=== PATIENT | female | born 1950 | race Caucasian/White ===

== ENCOUNTER 2018-06-20 10:15 | Outpatient (CLI) | payer MEDICARE, SELFPAY ==
[2018-06-20 10:42] LABS: Bilirubin Negative (Negative); Blood Negative (Negative); Clarity Clear; Glucose Negative (Negative); Ketones Trace mg/dL (Negative); Leukocyte Esterase Negative (Negative); Nitrite Negative (Negative); Specific Gravity 1.015 (1.005-1.025); Urobilinogen 0.2 EU/dL (Up TO 0.2); pH 5.5 (5-8)
== END 2018-06-20 10:35 ==
DX: R30.0 Dysuria (principal)
CPT/HCPCS: 81003

== ENCOUNTER 2018-10-31 01:30 | Outpatient (CLI) | payer MEDICARE, SELFPAY ==
[2018-10-31 10:48] LABS: ALT 28 U/L (12-78); AST 15 U/L (15-37); Albumin 4.1 g/dL (3.4-5.0); Alkaline Phosphatase 71 U/L (46-116); Anion Gap 5.5 mmol/L (3-11); BUN 23 mg/dL (7-18); Bilirubin, Total 0.7 mg/dL (0.2-1.0); CO2 32.5 mmol/L (21.0-32.0); CREATININE 0.95 mg/dL (0.55-1.02); Calcium 9.3 mg/dL (8.5-10.1); Chloride 102 mmol/L (98-107); Cholesterol 233 mg/dL (50-200); Estimated GFR 58.85 (mL/min/1.73m2); Glucose 105 mg/dL (70-100); HDL Cholesterol 91 mg/dL (40-60); LDL CHOLESTEROL 126 mg/dL (<100); Potassium 4.3 mmol/L (3.5-5.1); Sodium 140 mmol/L (136-145); TSH (W/Ref FT4) 3.49 uIU/mL (0.358-3.74); Triglyceride 78 mg/dL (30-150)
== END 2018-10-31 01:50 ==
DX: I10 Essential (primary) hypertension (principal); R63.8 Other symptoms and signs concerning food and fluid intake; K21.9 Gastro-esophageal reflux disease without esophagitis; G47.00 Insomnia, unspecified; Z13.220 Encounter for screening for lipoid disorders
CPT/HCPCS: 36415; 80053; 80061; 83721; 84443

== ENCOUNTER 2018-11-20 07:18 | Outpatient (CLI) | payer MEDICARE, SELFPAY ==
[2018-11-20 17:50] LABS: COMMENT (LAB VIEW ONLY) 113.56 mg/dL; Microalb ug/mg Crea 365.1 ug/mg Cr
== END 2018-11-20 07:38 ==
DX: I10 Essential (primary) hypertension (principal)
CPT/HCPCS: 82043; 82570

== ENCOUNTER 2019-06-01 02:32 | Outpatient (CLI) | payer MEDICARE, SELFPAY ==
[2019-06-01 10:12] LABS: ALT 27 U/L (14-59); AST 13 U/L (15-37); Alkaline Phosphatase 62 U/L (46-116); Anion Gap 9.7 mmol/L (3-11); BUN 27 mg/dL (7-18); Bilirubin, Total 0.6 mg/dL (0.2-1.0); CO2 30.3 mmol/L (21.0-32.0); CREATININE 1.07 mg/dL (0.55-1.02); Calcium 9.2 mg/dL (8.5-10.1); Calculated LDL 148 mg/dL; Chloride 102 mmol/L (98-107); Cholesterol 240 mg/dL (50-200); Estimated GFR 51.31 (mL/min/1.73m2); Glucose 108 mg/dL (70-100); HDL Cholesterol 74 mg/dL (40-60); Potassium 4.4 mmol/L (3.5-5.1); Sodium 142 mmol/L (136-145); Total Protein 8.2 g/dL (6.4-8.2); Triglyceride 90 mg/dL (30-150)
== END 2019-06-01 02:52 ==
DX: D17.9 Benign lipomatous neoplasm, unspecified (principal); G43.909 Migraine, unspecified, not intractable, without status migrainosus; I10 Essential (primary) hypertension; K21.9 Gastro-esophageal reflux disease without esophagitis
CPT/HCPCS: 36415; 80053; 80061

== ENCOUNTER 2019-06-02 12:25 | Outpatient (CLI) | payer MEDICARE, SELFPAY ==
--- NOTE | 2019-06-02 14:00 | DI.RAD_ITS ---
EXAM: XR FOOT LT COMPLETE CLINICAL HISTORY: foot pain M79.672. TECHNIQUE: 2D digital imaging was performed. COMPARISON: XR FOOT RT COMPLETE from 06/02/2019 FINDINGS: BONES: No acute fracture is present. No bony destructive lesion is seen. There is a small spur at th e plantar surface of the calcaneus. JOINTS: Mild degenerative changes are seen at the 1st metatarsophalangeal joint, the tarsometatarsal joints, and the talonavicular joint. SOFT TISSUE: Normal. IMPRESSION: Mild degenerative changes of the left foot.
--- NOTE | 2019-06-02 14:00 | DI.RAD_ITS ---
EXAM: XR FOOT RT COMPLETE CLINICAL HISTORY: foot pain M79.671. TECHNIQUE: 2D digital imaging was performed. COMPARISON: No exams were available for comparison FINDINGS: BONES: No acute fracture is present. There is a small spur at the plantar surface of the calcaneus. No bony destructive lesion is seen. JOINTS: Mild degenerative changes are present at the 1st metatarsophalangeal joint. SOFT TISSUE: Normal. IMPRESSION: Mild degenerative changes of the right foot.
== END 2019-06-02 12:45 ==
DX: M79.671 Pain in right foot (principal); M77.31 Calcaneal spur, right foot; M19.071 Primary osteoarthritis, right ankle and foot; M79.672 Pain in left foot; M77.32 Calcaneal spur, left foot; M19.072 Primary osteoarthritis, left ankle and foot
CPT/HCPCS: 73630

== ENCOUNTER 2019-08-11 20:49 | Outpatient (REF) | payer MEDICARE, SELFPAY | END 2019-08-11 21:09 | LOC: LBN 20:49 | PROVIDERS: Visit Provider Nurse Practitioner | DX: R30.0 Dysuria (principal) | CPT/HCPCS: 87077; 87086; 87186 ==

== ENCOUNTER 2019-09-14 01:38 | Outpatient (CLI) | payer MEDICARE, SELFPAY ==
--- NOTE | 2019-09-14 12:28 | DI.MAMMO_ITS ---
EXAM: MG MAMMO SCREENING CLINICAL HISTORY: screening Z12.39. TECHNIQUE: Bilateral full field digital CC and MLO mammographic images were obtained with 3D tomosyn thesis and utilizing computer aided detection (CAD). COMPARISON: Available for comparison. FINDINGS: Masses/Architectural Distortion: The hyperlucent mass seen in the left breast is unchanged and is con sistent with a lipoma. No suspicious masses are present. Microcalcifications: No suspicious pleomorphic-type are seen. Skin Thickening/Nipple Retraction: None. IMPRESSION: 1. No significant interval change with no specific features of malignancy noted. 2. Unless there is more urgent need, screening mammography is recommended, as per [employer] guidelines. BI-RADS Cat 2 - Benign Findings Breast Density - Category C - Heterogeneously dense The mammogram demonstrates the patient's breast tissue is dense. Dense breast tissue is very common a nd is not abnormal but dense breast tissue can make it harder to find cancer on a mammogram. Also, de nse breast tissue may increase their breast cancer risk. This information about the [facility] was provided to the patient to raise their awareness. Use this report when you speak wi th the patient about their risks for breast cancer, which includes their family history. At that time , you may recommend for more screening tests (Ultrasound or MRI) as they might be useful based on the ir risk. A negative radiographic report should not delay biopsy if a dominant or clinically suspicious mass is present. Up to ten percent of cancers are not identified on mammography. A negative report may reinforce clinical impression. Adenosis and dense breasts may obscure an underlying neoplasm. False positive reports average 6 to 10%. Patient will receive a letter notifying them of these results.
== END 2019-09-14 01:58 ==
PROVIDERS: Visit Provider Nurse Practitioner
DX: Z12.31 Encounter for screening mammogram for malignant neoplasm of breast (principal); D24.2 Benign neoplasm of left breast
CPT/HCPCS: 77063; 77067

== ENCOUNTER 2019-10-07 23:49 | Emergency (ER) | payer MEDICARE, SELFPAY ==
[2019-10-07 23:53] VITALS: BP 148/98; PULSE 82; RESP 16; TEMP 36.5
--- NOTE | 2019-10-08 00:09 | ED.GENADUL_ITS ---
Discharge Plan Disposition Patient Disposition: HOME Condition: Good Discharge Details Chief Complaint: Urinary Clinical Impression: UTI (urinary tract infection) Primary Care Provider: Krystal Key ED Provider: Jose Stein Meds and New Rx's Prescriptions: New phenazopyridine [Pyridium] 100 mg tablet 100 mg PO TID Qty: 6 RF: 0 nitrofurantoin monohyd/m-cryst [Macrobid] 100 mg capsule 100 mg PO Q12H 5 Days Qty: 10 RF: 0 No Action hydrochlorothiazide 25 mg tablet 25 mg PO DAILY Qty: 90 RF: 4 losartan 50 mg tablet 50 mg PO DAILY Qty: 90 RF: 3 omeprazole 20 mg capsule,delayed release(DR/EC) 20 mg PO DAILY Qty: 90 RF: 3 cyanocobalamin (vitamin B-12) [Vitamin B-12] 2,500 MCG tablet, sublingual 2,500 mcg Sublingual DAILY RF: 0 cholecalciferol (vitamin D3) [Vitamin D3] 2,000 UNIT capsule 2,000 unit PO DAILY RF: 0 Discharge Instructions Instructions: Urinary Tract Infection in Women (ED) Additional Instructions: The Pyridium will help with the symptoms but will turn your urine orange. Antibiotic for 5 days. Follow-up with primary care next week if not better. Return to ED for fever, back pain, vomiting, other concerns. Referrals: Krystal Key, [facility] [Primary Care Provider] - Medical Decision Making Patient's urine positive for blood and leukocytes with large number of WBCs seen on micro. Patient given Pyridium for symptoms. Started on Macrobid for cystitis. No evidence of systemic illness at this point. Follow-up with [facility] care next week if not better. Return to ED for fever, vomiting, back pain, other concerns or problems. Lab Data Lab results reviewed: Yes I reviewed the patient's lab results. HPI General Mode of arrival: ambulatory . Date/Time Provider Initiated Documentation: 10/08/19 00:07 . Limitations to Documentation: no limitations . Information obtained by: patient . HPI Narrative: Patient presents to ED with complaint of urinary symptoms that started this afternoon. She has a lot of dysuria, urgency, pressure. She felt a little chilled but no documented fever. No flank pain. No vomiting. Little bit of low back pain and pelvic pressure. Has had UTIs in the past. Related Data Home Medications Medication Instructions Recorded Confirmed cyanocobalamin (vitamin B-12) 2,500 mcg SUBLINGUAL DAILY 01/16/13 10/08/19 [B-12] cholecalciferol (vitamin D3) 2,000 unit PO DAILY tab 01/19/13 10/08/19 [Vitamin D-3] hydrochlorothiazide 25 mg tablet 25 mg PO DAILY #90 tab-cap 11/10/18 10/08/19 losartan 50 mg tablet 50 mg PO DAILY #90 tab 11/10/18 10/08/19 omeprazole 20 mg capsule,delayed 20 mg PO DAILY #90 cap 06/02/19 10/08/19 release nitrofurantoin monohyd/m-cryst 100 mg PO Q12H 5 Days #10 cap 10/08/19 [Macrobid] phenazopyridine [Pyridium] 100 mg PO TID #6 tab 10/08/19 Previous Rx's Medication Instructions Recorded hydrochlorothiazide 25 mg tablet 25 mg PO DAILY #90 tab-cap 11/10/18 losartan 50 mg tablet 50 mg PO DAILY #90 tab 11/10/18 omeprazole 20 mg capsule,delayed 20 mg PO DAILY #90 cap 06/02/19 release nitrofurantoin monohyd/m-cryst 100 mg PO Q12H 5 Days #10 cap 10/08/19 [Macrobid] phenazopyridine [Pyridium] 100 mg PO TID #6 tab 10/08/19 Allergies Allergy/AdvReac Type Severity Reaction Status Date / Time lisinopril AdvReac Intermediate COUGH Verified 10/08/19 00:26 General Stated Complaint: Urinary OK: 4 Review of Systems Constitutional Constitutional: Denies fever(s) Gastrointestinal Gastrointestinal: Denies abdominal pain, Denies nausea and Denies vomiting Genitourinary Genitourinary: Reports urinary frequency, Reports dysuria, Denies flank pain and Reports urinary urgency COUNT INCLUDES THE [facility] Medical History History of gastroesophageal reflux (GERD) (Chronic) Hypertension (Chronic) Intermittent palpitations (Chronic) 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) Surgical History No significant past surgical history (Acute) Social History Smoking/Tobacco Use Status: Never Alcohol Intake: current Alcohol Intake frequency: 0-2 drinks per day Alcohol type: wine and hard liquor Drug use: Never Substance use type: does not use Household members: spouse Pets and animals: Yes Pets and animals: cat(s) Do you think of yourself as: straight/heterosexual Current gender identity: female What is your relationship status?: How often do you talk on the phone with friends or family?: three or more times per week How often do you get together with friends or relatives?: three or more times per week How often do you attend nondenominational or mormon services?: decline to answer Do you belong to any clubs or organized social groups?: decline to answer Panel score (0-1 are the most socially isolated patients): 2 What type of physical activity do you participate in: other Duration: 30-45 minutes/day Frequency: 3-4 times per week Karley/Buddhist: Confucianism Special karley needs: No Do you feel safe at home: Yes Do you feel safe in your relationship?: Yes Exam Narrative Exam Narrative: Vitals: Afebrile. Elevated blood pressure otherwise normal vital signs. Const: WDWN female in NAD. HEENT: NC/AT. Normal facial exam. Eyes: Normal conjunctiva and sclera. Neck: Supple. Trachea midline. Lungs: Normal respiratory effort. GI: Soft. NT/ND. No guarding or rebound. Back: No CVAT Neuro: A+O x 3. Normal speech, mentation, gait. Cranial nerves II - XII grossly intact. No gross motor or sensory deficit. Course Vital Signs Vital signs: Vital Signs Temperature 97.7 F 10/07/19 23:53 Pulse 82 10/07/19 23:53 Respiratory Rate 16 10/07/19 23:53 Blood Pressure 148/98 H 10/07/19 23:53 Temperature 97.7 F 10/07/19 23:53 Temperature Source Temporal Artery Scan 10/07/19 23:53 Pulse 82 10/07/19 23:53 Respiratory Rate 16 10/07/19 23:53 Respiratory Effort 10/07/19 23:59 Blood Pressure 148/98 H 10/07/19 23:53 Pain Level 8 10/08/19 00:00
[2019-10-08] MEDS: MacroBID 100 MG CAP PO (00:21)
[2019-10-08 00:22] LABS: Bilirubin Negative (Negative); Blood Large (Negative); Clarity Sl Cloudy (Clear); Glucose Negative (Negative); Ketones Negative (Negative); Leukocyte Esterase Large (Negative); Nitrite Negative (Negative); Urobilinogen 0.2 EU/dL (Up TO 0.2)
[2019-10-08] MEDS: Phenazopyridine 100 MG TAB PO (00:22)
[2019-10-08 00:31] LABS: Bacteria Few HPF (Negative); C & S Indicated? Yes; Epithelial Cells Few HPF (Negative); WBC >50 HPF (0-5)
[2019-10-08 01:10] VITALS: BP 148/98; PULSE 82; RESP 16
== END 2019-10-08 01:13 | disposition home or self-care (01) ==
PROVIDERS: Emergency Provider Emergency Medicine
DX: N39.0 Urinary tract infection, site not specified (principal); B96.20 Unspecified Escherichia coli [E. coli] as the cause of diseases classified elsewhere; Z87.440 Personal history of urinary (tract) infections; I10 Essential (primary) hypertension
CPT/HCPCS: 87077; 99283; 81003; 81015; 87086; 87186

== ENCOUNTER 2020-03-22 03:47 | Outpatient (CLI) | payer MEDICARE, SELFPAY ==
[2020-03-22 14:54] LABS: ALT 22 U/L (14-59); AST 12 U/L (15-37); Alkaline Phosphatase 51 U/L (46-116); Anion Gap 7.3 mmol/L (3-11); BUN 21 mg/dL (7-18); Bilirubin, Total 0.6 mg/dL (0.2-1.0); CO2 28.7 mmol/L (21.0-32.0); CREATININE 1.02 mg/dL (0.55-1.02); Calcium 9.6 mg/dL (8.5-10.1); Calculated LDL 138 mg/dL (<100); Chloride 102 mmol/L (98-107); Cholesterol 231 mg/dL (<200); Estimated GFR 54.05 (mL/min/1.73m2); Glucose 100 mg/dL (74-106); HDL Cholesterol 70 mg/dL (40-60); Potassium 3.8 mmol/L (3.5-5.1); Sodium 138 mmol/L (136-145); Total Protein 7.9 g/dL (6.4-8.2); Triglyceride 118 mg/dL (<150)
[2020-03-23 10:13] LABS: Varicella IgG Antibody Positive (See Note)
== END 2020-03-22 04:07 ==
DX: Z01.84 Encounter for antibody response examination
CPT/HCPCS: 36415; 80053; 80061; 86787

== ENCOUNTER 2020-08-22 21:15 | Outpatient (REF) | payer MEDICARE, SELFPAY ==
[2020-08-22 21:15] LABS: Bilirubin Negative (Negative); Blood Negative (Negative); Clarity Clear (Clear); Glucose Negative (Negative); Ketones Negative (Negative); Leukocyte Esterase Small (Negative); Nitrite Negative (Negative); Specific Gravity 1.015 (1.005-1.025); Urobilinogen 0.2 EU/dL (Up TO 0.2); pH 6.5 (5-8)
[2020-08-22 21:25] LABS: Bacteria Moderate HPF (Negative); C & S Indicated? Yes; Casts Negative LPF (Negative); Crystals Negative HPF (Negative); Epithelial Cells Few HPF (Negative); Mucus Negative (Negative); RBC 0-2 HPF (0-2)
== END 2020-08-22 21:35 ==
LOC: LBN 21:15
DX: R30.0 Dysuria (principal)
CPT/HCPCS: 87077; 81003; 81015; 87086; 87186

== ENCOUNTER 2020-09-09 14:24 | Outpatient (REF) | payer MEDICARE, SELFPAY | END 2020-09-09 14:44 | LOC: LBN 14:24 | PROVIDERS: Visit Provider Nurse Practitioner Family | DX: N39.0 Urinary tract infection, site not specified (principal) | CPT/HCPCS: 87086 ==

== ENCOUNTER 2020-09-29 20:35 | Outpatient (REF) | payer MEDICARE, SELFPAY ==
[2020-09-29 21:04] LABS: Bilirubin Negative (Negative); Blood Negative (Negative); Clarity Clear (Clear); Glucose Negative (Negative); Ketones Negative (Negative); Leukocyte Esterase Small (Negative); Nitrite Negative (Negative); Specific Gravity 1.015 (1.005-1.025); Urobilinogen 0.2 EU/dL (Up TO 0.2); pH 6.5 (5-8)
[2020-09-29 21:13] LABS: Bacteria Moderate HPF (Negative); C & S Indicated? Yes; Casts Negative LPF (Negative); Crystals Negative HPF (Negative); Epithelial Cells Few HPF (Negative); Mucus Negative (Negative); RBC 0-2 HPF (0-2)
== END 2020-09-29 20:55 ==
LOC: LBN 20:35
DX: R30.0 Dysuria (principal)
CPT/HCPCS: 81003; 81015; 87086

== ENCOUNTER 2021-06-08 18:40 | Outpatient (REF) | payer MEDICARE, SELFPAY | END 2021-06-08 18:41 | disposition home or self-care (01) | LOC: NCHCN 18:40 | PROVIDERS: Visit Provider Family Medicine | DX: N39.0 Urinary tract infection, site not specified (principal) | CPT/HCPCS: 87077; 87086; 87186 ==

== ENCOUNTER → 2021-06-20 08:54 | Outpatient (BNVA) | payer MEDICARE, SELFPAY | PROVIDERS: Visit Provider Surgery | DX: Z12.11 Encounter for screening for malignant neoplasm of colon (principal); Z86.010 Personal history of colon polyps ==

== ENCOUNTER 2021-06-26 02:24 | Outpatient (CLI) | payer MEDICARE, SELFPAY ==
[2021-06-26 11:12] LABS: Source Nasal/Nares
[2021-06-26 14:48] LABS: COVID-19 PCR Negative (Negative)
== END 2021-06-26 02:25 | disposition home or self-care (01) ==
LOC: LBO 02:24
PROVIDERS: Visit Provider Surgery
DX: Z20.822 Contact with and (suspected) exposure to COVID-19 (principal); Z01.818 Encounter for other preprocedural examination
CPT/HCPCS: 87635

== ENCOUNTER 2021-06-28 11:02 | Day surgery (SDC) | payer MEDICARE, SELFPAY ==
--- NOTE | 2021-06-28 06:28 | ANES.PREOP_ITS ---
General Info Date of Service Date Performed: 06/28/21 Height: 5 ft 3 in Weight: 68.266 kg Body Mass Index (BMI): 26.6 Surgical Procedure: Operation Date: 06/28/21 11:20 Proposed Procedures Side Surgeon p Colonoscopy Jonna Cooley MD Meds Allergies and Home Medications Allergies Allergy/AdvReac Type Severity Reaction Status Date / Time lisinopril AdvReac Intermediate COUGH Verified 06/28/21 11:17 Home Medication Medication Instructions Recorded cyanocobalamin (vitamin B-12) 2,500 mcg SUBLINGUAL DAILY 01/16/13 [B-12] cholecalciferol (vitamin D3) 2,000 unit PO DAILY tab 01/19/13 [Vitamin D-3] hydrochlorothiazide 25 mg tablet 25 mg PO DAILY #90 tab-cap 09/29/20 losartan 50 mg tablet 50 mg PO DAILY #90 tab 09/29/20 omeprazole 20 mg capsule,delayed 20 mg PO DAILY #90 cap 09/29/20 release bisacodyl 5 mg tablet,delayed 5 mg PO ONCE #4 tab 06/20/21 release polyethylene glycol 3350 17 17 g PO ONCE #238 g 06/20/21 gram/dose oral powder Current Visit Medications: Current Medications Generic Name Dose Route Start Last Admin Trade Name Freq PRN Reason Stop Dose Admin Ringer's Solution 1,000 mls @ 80 mls/hr 06/28/21 06:00 IV 07/27/21 23:59 INFUSION GIANA IV Miscellaneous Supplies 1 each 06/28/21 06:00 Iv Access IV 07/27/21 23:59 DIRECTED GIANA Sodium Chloride 0 ml 06/28/21 06:00 Normal Saline Flush 10 Ml Syr IV 07/27/21 23:59 PRN PRN Sodium Chloride 0 ml 06/28/21 06:00 Normal Saline 10 Ml Vial IJ 07/27/21 23:59 DIRECTED PRN Sterile Water 0 ml 06/28/21 06:00 Water,Injection,Sterile 10 Ml Vial IJ 07/27/21 23:59 DIRECTED PRN PFSH Active Problems Active Problems: Problem Status Onset Code Foot pain, left M79.672 Foot pain, right M79.671 UTI (urinary tract infection) N39.0 Anxiety as acute reaction to exceptional stress F41.1, F43.0 Weight gain R63.5 Colon cancer screening Z12.11 Annual physical exam Z00.00 Dysuria R30.0 Intermittent palpitations R00.2 History of gastroesophageal reflux (GERD) Z87.19 Tubulovillous adenoma polyp of colon D12.6 Hypertension I10 Lipoma 01/29/13 D17.9 Migraine G43.909 Osteopenia M85.80 Peptic reflux disease K21.9 Pityriasis versicolor 01/29/13 B36.0 Medical History Medical History Anxiety as acute reaction to exceptional stress Foot pain, left Foot pain, right History of gastroesophageal reflux (GERD) Hypertension Intermittent palpitations Lipoma (01/29/13) LEFT BREAST-[place] U[place] [facility] [place] Migraine trigeminal neuralgia Osteopenia Pityriasis versicolor (01/29/13) RECURRENT Tubulovillous adenoma polyp of colon UTI (urinary tract infection) Surgical History Surgical History (Updated 06/28/21 @ 11:16 by Esthela Chairez) History of colonoscopy Tobacco Smoking/Tobacco Use Status: Never Alcohol Alcohol Intake: current Alcohol intake frequency: 0-2 drinks per day Alcohol type: wine and hard liquor Substance Use Substance use: Never Substance use type: does not use Vital Signs and Lab Results Vital Signs Most Recent Vital Signs in EMR: Temp Pulse Resp BP Pulse Ox 36.6 C 58 L 18 140/89 100 06/28/21 11:05 06/28/21 11:05 06/28/21 11:05 06/28/21 11:05 06/28/21 11:05 Lab Results Blood Type / Crossmatch: No Data to Display Complete Blood Count: No Data to Display Complete Metabolic Panel: No Data to Display Liver Function Panel: No Data to Display Coagulation Panel: No Data to Display Cardiac Panel: No Data to Display Arterial Blood Gas: No Data to Display Venous Blood Gas: No Data to Display Pancreas Panel: No Data to Display Thyroid Panel: No Data to Display Infectious Disease: Coronavirus (COVID-19)(PCR) Negative (Negative) 06/26/21 09:03 06/26/21 Coronavirus 2019 Source Nasal/Nares 06/26/21 09:03 06/26/21 Blood Cultures: No Data to Display Toxicology Panel: No Data to Display Imaging and Studies Imaging and Studies Stress Test Summary: 2012: negative for ischemia. Anesthesia Assessment and Plan Anesthesia History Personal History: No History of Anesthesia Complications Family History: No Family History of Anesthesia Complications Exercise Tolerance Exercise Tolerance: Metabolic Equivalents>4 Cardiac & Pulmonary Exam Cardiac Exam: Normal S1/S2 Heart Sounds Pulmonary Exam: Clear Bilateral Breath Sounds Airway Exam Known Difficult Airway: No Mallampati Class: 2 Mouth Opening: Normal (> 3cm) Thyromental Distance: Greater than 3 cm Neck Range of Motion: Full ROM Neck Circumference: Normal Teeth Condition: Normal Dentition ASA Classification ASA Score: ASA 2 Emergency Case?: No NPO Status NPO Status: NPO Clears >2 hours, Solids >8 hours Anesthesia Plan Resuscitation Status: Full Code Anesthesia Technique: General Anesthesia Airway Planned: Natural Airway Monitors Used: Standard Monitors Preoperative Comments:: 70 yo female with history of adenomatous polyps for a colonoscopy. Sig PMHx: HTN (losartan/HCTZ), GERD (omeprazole), anxiety, never smoker, occ EtOH.
--- NOTE | 2021-06-28 06:50 | W.COLOREPORT ---
Colonoscopy Report Date of procedure: 06/28/21 Pre-op diagnosis general: Hx of colon polyps Post-op diagnosis procedure note: same (cecal polyp) Procedure: Colonoscopy with polypectomy Surgeon: Jonna Cooley Anesthesia Type: General:No Airway (Tevin Kramer CRNA) Estimated blood loss (mL): 3 Pathology: other (cecal polyp) Complications: None Disposition: same day Indications: Mrs Cheung is a pleasant 70-year-old female who is here today to discuss another screening colonoscopy. Her last colonoscopy was in 2017 and she was found to have a tubulovillous adenoma. She denies any changes in bowel habits, melena, hematochezia, unintentional weight loss, abdominal pain or family history of colon cancer. She does have some hemorrhoidal skin tags which sometimes can cause some pain. Her past medical history is significant for hypertension which is controlled. She also has some mild reflux which is well controlled on omeprazole. Risks, benefits and complications have been reviewed. Complications include but are not limited to bleeding, pain, perforation, missed small lesion/polyp, sore throat, aspiration and adverse reaction to the medications. Questions were entertained and answered to their satisfaction and they wished to proceed. No guarantees were given or implied. Proceed with colonoscopy under sedation Prep: Miralax/Dulcolax Procedure Start Time: 12:41 Procedure End Time: 13:01 Retraction Time: 11 minutes Findings: One sessile polyp in the cecum >10 mm Procedure Description: After informed consent was obtained the patient was taken to the procedure room and placed in a left decubitous position. Monitors were applied and a time out was done. The patients name, date of , procedure, allergies to medications and metal in their body was reviewed. The patient was then sedated. Once sedated and comfortable a rectal exam was done. External exam was normal. Internal exam revealed a decreased sphincter tone and no palpable masses. The scope was then introduced and retro-flexed. No internal hemorrhoids, polyps or masses were identified on retro-flexion. The scope was then advanced to the cecum without difficulty. The ileocecal vlave and appendiceal orifice were identified. The prep was good. The scope was then slowly retracted over 11 minutes back into the rectum. Polyps were removed with a hot snare in the cecum. There was no diverticulosis noted. The scope was removed and the patient was woken up and taken back to Same day surgery in stable condition. The patient tolerated the procedure well and there were no immediate complications. Follow up: The patient should follow up in 3 years unless they develop changes in bowel habits or other new gastrointestinal complaints.
--- NOTE | 2021-06-28 06:51 | W.PM.DSUDISC ---
Discharge Plan Disposition Patient Disposition: HOME Condition: Good Discharge Details Reason For Visit: Colonoscopy Attending Provider: Jonna Cooley Primary Care Provider: Krystal Key Home Meds and New Rx's Prescriptions: Continued losartan 50 mg tablet 50 mg PO DAILY Qty: 90 RF: 3 hydrochlorothiazide 25 mg tablet 25 mg PO DAILY Qty: 90 RF: 4 omeprazole 20 mg capsule,delayed release(DR/EC) 20 mg PO DAILY Qty: 90 RF: 3 cyanocobalamin (vitamin B-12) [Vitamin B-12] 2,500 MCG tablet, sublingual 2,500 mcg Sublingual DAILY RF: 0 cholecalciferol (vitamin D3) [Vitamin D3] 2,000 UNIT capsule 2,000 unit PO DAILY RF: 0 Discontinued bisacodyl [Dulcolax (bisacodyl)] 5 mg tablet,delayed release (DR/EC) 5 mg PO ONCE Qty: 4 RF: 0 polyethylene glycol 3350 17 gram/dose powder 17 g PO ONCE Qty: 238 RF: 0 Discharge Instructions Instructions: Colorectal Polyps (DC) Additional Instructions: Findings: one polyp > 1 cm Follow up: 3 years Please call if you develop: fevers >101.5 Nausea or Vomiting Abdominal pain that is not transient Rectal bleeding that is more then a tbsp A hard abdomen and inability to pass gas DAY SURGERY UNIT POST ENDOSCOPY INSTRUCTIONS Instructions for everyone who is given Anesthesia: For your safety, please do the following for the next 24 Hours: a. Do not drive or operate dangerous equipment b. Do not drink alcohol beverages or use any recreational drugs for the first 24 hours or while taking pain medications. The medications in your body may have a reaction that can be dangerous. c. Do not make any important decisions or sign any important papers 1. Generally there are no restrictions on your activity after a day or so has gone by, but you may feel a bit fatigued for a few days. 2. After you arrive home you may have a light meal and return to a normal diet as you can tolerate it without feeling sick to your stomach. 3. After surgery, you may feel pain or discomfort. This should be only transient, but if it persists please contact your doctor. 4. If there are any questions regarding the findings of your procedure, please feel free to contact your doctor. 6. If you are unable to contact your doctor with a problem, contact the hospital at [phone]. 7. Continue all your regular medications unless directed otherwise. I understand the above instructions and have no questions. Signature of Patient or Responsible Adult Escort Date/Time Name of Responsible Adult Escort Signature of Nurse Date/Time Activity:: Activity as Tolerated Diet:: As Tolerated Discharge Orders Discharge Orders: Discharge Order (Routine); Ordered 06/28/21 Ordered By: Jonna Cooley
[2021-06-28 11:05] VITALS: BP 140/89; PULSE 58; RESP 18; TEMP 36.6; O2SAT 100
[2021-06-28] MEDS: Lactated Ringers 1,000 ML 80 ML IV (11:38)
[2021-06-28 11:41] VITALS: BMI 26.6
--- NOTE | 2021-06-28 12:50 | BOWEL_PTH ---
PATIENT: Janny Cheung V LOC: [facility] U#:[id number] AGE/SX: 70/F ROOM: RE06/28/[address]: Jonna Cooley MD : [id number] BED: DIS: 06/28/2021 SPEC #: [id number] RECD: 06/28/21 18:44 STATUS: TERE REQ #: [id number] ROBERT: 06/28/21 12:[address]: Jonna Cooley DEPT: Surgical Specimen RECD BY: Erica Hawthorne ENTERED: 06/28/21 18:44 SP TYPE: Bowel OTHR DR: Krystal Key APRN Tissues: 1 - BIOPSY BOWEL Procedures: GROSS AND MICRO LEVEL 4 Comments: [id number]
[2021-06-28 13:09] VITALS: BP 110/63; PULSE 53; RESP 18; TEMP 36.1; O2SAT 98
[2021-06-28 13:30] VITALS: BP 117/86; PULSE 45; RESP 16; TEMP 36.6; O2SAT 98
--- NOTE | 2021-06-28 14:17 | W.ANESPOSTOP ---
Postoperative Evaluation Date, Time and Location Date Performed: 06/28/21 Time Performed: 14:17 Patient Location: Day Surgery Unit Vital Signs Most Recent Imported Vital Signs: Most Recent Vital Signs Temp Pulse Resp BP Pulse Ox 36.6 C 45 L 16 117/86 98 06/28/21 13:30 06/28/21 13:30 06/28/21 13:30 06/28/21 13:30 06/28/21 13:30 Pain Score Most Recent Pain Score: Most Recent Pain Score Pain Level 0 06/28/21 13:30 Assessment Mental Status: Awake (Alert & Oriented to Patient Baseline) Airway and Respiratory Function: Patent airway with normal (patient baseline) respiratory exam Cardiovascular Function: Hemodynamically Stable Hydration Status: Adequately Hydrated Nausea & Vomiting: No Nausea or Vomiting Pain: Pt. Denies Any Pain Peripheral Nerve Block: Patient did not receive a nerve block
== END 2021-06-28 13:58 | disposition home or self-care (01) ==
LOC: SUR 11:02
PROVIDERS: Visit Provider Surgery
PROC: 0DJD8ZZ Inspection of Lower Intestinal Tract, Via Natural or Artificial Opening Endoscopic (ICD-10-PCS; CPT 45378; principal; 2021-06-28 11:15)
DX: Z12.11 Encounter for screening for malignant neoplasm of colon (principal); Z86.010 Personal history of colon polyps; I10 Essential (primary) hypertension; D12.0 Benign neoplasm of cecum
CPT/HCPCS: 45385; 88305; J2001

== ENCOUNTER 2021-07-02 22:22 | Observation (INO) | payer MEDICARE, SELFPAY ==
[2021-07-02] VITALS (15 sets, daily range): BP systolic 100–138; BP diastolic 63–78; PULSE 58–75; RESP 9–22; TEMP 36.3; O2SAT 97–100
--- NOTE | 2021-07-02 22:15 | RT.EKG_ITS ---
APPROVED REPORT Exam: Resting ECG Reason for Exam: weakness Patient Location: E HR:60 bpm ECG Measurements Heart Rate 60 AXIS AK 200 P 35 QRSd 99 QRS 1 QT 448 T 33 QTc 447 Conclusion Sinus rhythm...normal P axis, V-rate 60- 99
[2021-07-02] MEDS: Normal Saline 500 ML 1000 ML IV ×2 (22:25→22:49)
[2021-07-02 22:37] LABS: HCT 27.3 % (36.0-46.0); MCH 29.9 pg (27.0-33.0); MCV 90.7 fL (80-95); MPV 11.6 fL (8.0-11.0); Platelet Count 224 10^3/uL (130-400); RBC 3.01 10^6/uL (3.93-5.22); RDW 12.5 % (11.7-14.6); RDW-SD 40.8 fL; WBC 9.95 10^3/uL (4.4-10.8)
[2021-07-02 22:52] LABS: ALT 15 U/L (14-59); AST 11 U/L (15-37); Albumin 3.2 g/dL (3.4-5.0); Alkaline Phosphatase 52 U/L (46-116); Anion Gap 11.6 mmol/L (3-11); BUN 32 mg/dL (7-18); Bilirubin, Total 0.2 mg/dL (0.2-1.0); CO2 24.4 mmol/L (21.0-32.0); CREATININE 1.2 mg/dL (0.55-1.02); Calcium 8.2 mg/dL (8.5-10.1); Chloride 104 mmol/L (98-107); Estimated GFR 44.68 (mL/min/1.73m2); Glucose 194 mg/dL (74-106); Potassium 3.2 mmol/L (3.5-5.1); Sodium 140 mmol/L (136-145); Total Protein 6.6 g/dL (6.4-8.2)
[2021-07-02 22:59] LABS: Troponin I < 0.05 ng/mL (<0.06)
[2021-07-03] VITALS (21 sets, daily range): BP systolic 111–137; BP diastolic 63–88; PULSE 61–78; RESP 12–19; TEMP 36–36.8; TEMPC 36.3; O2SAT 96–100
--- NOTE | 2021-07-03 00:07 | ED.GENADUL_ITS ---
Discharge Plan Disposition Patient Disposition: [facility] INPATIENT Condition: Serious Discharge Details Clinical Impression: Acute GI bleeding, Abnormal colonoscopy Admit Date/Time: 07/03/21 00:02 Admit Provider: Liseth Dietrich Attending Provider: Liseth Dietrich Primary Care Provider: Krystal Key ED Provider: Erica Healy Discharge Data Discharge Date/Time-TO BE ENTERED AT DEPARTURE: 07/03/21 01:25 Medical Decision Making Patient was presyncopal with blood pressure 55/40, in supine position after saline, blood pressure is normalized, she is hemodynamically stable with a hemoglobin of 9 and hematocrit of 27, there is no indication to transfuse at this time Case was discussed with Dr. Dietrich who will admit patient for observation She will have repeat CBC in 2 hours No indication for Protonix, this is suspected lower GI bleed with bright red blood She does have an elevated BUN, will continue with hydration Agreeable to admission at this time, full CODE STATUS Medical Records Medical records reviewed: Yes I reviewed the patient's medical records. Lab Data Lab results reviewed: Yes I reviewed the patient's lab results. ECG Data Attestation: I personally reviewed and interpreted this ECG (s) as follows: HPI General Mode of arrival: ambulatory . Date/Time Provider Initiated Documentation: 07/02/21 22:24 . Limitations to Documentation: no limitations . Information obtained by: patient . HPI Narrative: This 70-year-old female here was visiting with a family member reportedly went to the restroom and had a bowel movement filled with bright red blood. Patient is status post colonoscopy on 102 where she had a polyp removed. She states she is been bleeding for the past 2 days. She states today she had approximately half a cup of blood in the toilet just prior to her presyncopal event. She states she felt like she might pass out and on assessment her blood pressure 65/40 She did not have complete loss of consciousness. She felt nauseous from the episode. She otherwise felt well today. Is not anticoagulated and not taking any nonsteroidals reportedly. Related Data Home Medications Medication Instructions Recorded Confirmed cyanocobalamin (vitamin B-12) 2,500 mcg SUBLINGUAL DAILY 01/16/13 07/02/21 [Vitamin B-12] cholecalciferol (vitamin D3) 2,000 unit PO DAILY tab 01/19/13 07/02/21 [Vitamin D3] hydrochlorothiazide 25 mg tablet 25 mg PO DAILY #90 tab-cap 09/29/20 07/02/21 losartan 50 mg tablet 50 mg PO DAILY #90 tab 09/29/20 07/02/21 omeprazole 20 mg capsule,delayed 20 mg PO DAILY #90 cap 09/29/20 07/02/21 release Previous Rx's Medication Instructions Recorded hydrochlorothiazide 25 mg tablet 25 mg PO DAILY #90 tab-cap 09/29/20 losartan 50 mg tablet 50 mg PO DAILY #90 tab 09/29/20 omeprazole 20 mg capsule,delayed 20 mg PO DAILY #90 cap 09/29/20 release Allergies Allergy/AdvReac Type Severity Reaction Status Date / Time lisinopril AdvReac Intermediate COUGH Verified 07/02/21 22:32 General Stated Complaint: Dizzy/Sync OK: 1 Review of Systems All systems reviewed & are unremarkable except as noted in HPI and below PFSH Medical History Anxiety as acute reaction to exceptional stress Foot pain, left Foot pain, right History of gastroesophageal reflux (GERD) Hypertension Intermittent palpitations Lipoma (01/29/13) LEFT BREAST-on U/S stable [place]o [facility] [place] Migraine trigeminal neuralgia Osteopenia Pityriasis versicolor (01/29/13) RECURRENT Tubulovillous adenoma polyp of colon UTI (urinary tract infection) Surgical History History of colonoscopy Family History Mother Essential hypertension Heart disease Father , 51 Hodgkin's disease Sister Essential hypertension Maternal Grandfather , 73 Heart disease Stroke Paternal Grandfather , 76 Personal history of malignant neoplasm Prostate Maternal Grandmother , 60 Heart disease Brother Essential hypertension Sister No problems noted. Sister No problems noted. Son Depression Daughter No problems noted. Social History Smoking/Tobacco Use Status: Never Smoking risk assessment performed?: Yes Alcohol Intake: current Alcohol Intake frequency: 0-2 drinks per day Alcohol type: wine and hard liquor Drug use: Never Substance use type: does not use Caregiver/Support person: No Household members: spouse Communication Needs: None Pets and animals: Yes Pets and animals: cat(s) Sexually active: No Do you think of yourself as: straight/heterosexual Current gender identity: female What is your relationship status?: How often do you talk on the phone with friends or family?: decline to answer How often do you get together with friends or relatives?: decline to answer How often do you attend mormonism or baptism services?: decline to answer Do you belong to any clubs or organized social groups?: yes Panel score (0-1 are the most socially isolated patients): 2 What type of physical activity do you participate in: other Duration: 60-90 minutes/day Frequency: 3-4 times per week Karley/Spiritism: Pentecostal Special karley needs: No Do you feel safe at home: Yes Do you feel safe in your relationship?: Yes Exam Const General: comfortable and ill appearing Eyes Pupils: PERRL Chest Chest: normal inspection of the chest Resp Effort & Inspection: normal respiratory effort Cardio Rate: regular rate Rhythm: regular rhythm GI Inspection: normal to inspection Other: Nontender abdominal exam Skin Other: Pallor Neuro General: patient alert and patient oriented x3 Course Vital Signs Vital signs: Vital Signs Temperature 36.3 C L 07/02/21 22:25 Pulse 60 07/02/21 22:25 Respiratory Rate 14 07/02/21 22:25 Blood Pressure 100/63 07/02/21 22:25 Pulse Oximetry 99 07/02/21 22:25 Temperature 36.3 C L 07/02/21 22:25 Pulse 58 L 07/02/21 22:46 Pulse 60 07/02/21 22:50 Respiratory Rate 9 L 07/02/21 22:50 Respiratory Effort Non-Labored 07/02/21 22:54 Respiratory Depth Normal 07/02/21 22:54 Respiratory Pattern Normal 07/02/21 22:54 Blood Pressure 123/70 07/02/21 22:46 Blood Pressure Mean 82 07/02/21 22:46 Blood Pressure Position Supine 07/02/21 22:25 Pulse Oximetry 98 07/02/21 22:50 Oxygen Delivery Method Room Air 07/02/21 22:25 Oxygen Flow Rate 0 07/02/21 22:25 Pain Level 0 07/02/21 22:25 Lab/Test Results Lab/Test Results: Laboratory Tests Range/Units 07/02/21 07/02/21 07/02/21 22:20 22:20 22:20 WBC (4.4-10.8) 10^3/uL 9.95 RBC (3.93-5.22) 10^6/uL 3.01 L Hgb (11.2-15.7) g/dL 9.0 L Hct (36.0-46.0) % 27.3 L MCV (80-95) fL 90.7 MCH (27.0-33.0) pg 29.9 MCHC (32.0-36.0) % 33.0 RDW (11.7-14.6) % 12.5 Plt Count (130-400) 10^3/uL 224 MPV (8.0-11.0) fL 11.6 H PT (9.3-11.0) sec 10.0 INR (0.9-1.1) 1.0 Sodium (136-145) mmol/L 140 Potassium (3.5-5.1) mmol/L 3.2 L Chloride (98-107) mmol/L 104 Carbon Dioxide (21.0-32.0) mmol/L 24.4 Anion Gap (3-11) mmol/L 11.6 H BUN (7-18) mg/dL 32 H Creatinine (0.55-1.02) mg/dL 1.2 H Estimated GFR/1.73 m2 (mL/min/1.73m2) 44.68 Glucose (74-106) mg/dL 194 H Calcium (8.5-10.1) mg/dL 8.2 L Total Bilirubin (0.2-1.0) mg/dL 0.2 AST (15-37) U/L 11 L ALT (14-59) U/L 15 Alkaline Phosphatase (46-116) U/L 52 Troponin I (<0.06) ng/mL < 0.05 Total Protein (6.4-8.2) g/dL 6.6 Albumin (3.4-5.0) g/dL 3.2 L Patient ABO/Rh Antibody Screen Range/Units 07/02/21 22:20 WBC (4.4-10.8) 10^3/uL RBC (3.93-5.22) 10^6/uL Hgb (11.2-15.7) g/dL Hct (36.0-46.0) % MCV (80-95) fL MCH (27.0-33.0) pg MCHC (32.0-36.0) % RDW (11.7-14.6) % Plt Count (130-400) 10^3/uL MPV (8.0-11.0) fL PT (9.3-11.0) sec INR (0.9-1.1) Sodium (136-145) mmol/L Potassium (3.5-5.1) mmol/L Chloride (98-107) mmol/L Carbon Dioxide (21.0-32.0) mmol/L Anion Gap (3-11) mmol/L BUN (7-18) mg/dL Creatinine (0.55-1.02) mg/dL Estimated GFR/1.73 m2 (mL/min/1.73m2) Glucose (74-106) mg/dL Calcium (8.5-10.1) mg/dL Total Bilirubin (0.2-1.0) mg/dL AST (15-37) U/L ALT (14-59) U/L Alkaline Phosphatase (46-116) U/L Troponin I (<0.06) ng/mL Total Protein (6.4-8.2) g/dL Albumin (3.4-5.0) g/dL Patient ABO/Rh A Positive Antibody Screen NEGATIVE Critical Care Time Critical Care Time Critical Care Time: Yes Total Critical Care Time: 35 Attestation: IV fluid resuscitation, telemetry monitoring, admission, diagnostic labs
[2021-07-03 00:18] LABS: Magnesium 1.7 mg/dL (1.8-2.4)
[2021-07-03] MEDS: Potassium Chloride 20 MEQ TABCR PO (00:57)
[2021-07-03 01:04] LABS: Source Nasal/Nares
[2021-07-03 01:20] LABS: Abs Immature Grans 0.03 10^3/uL (0.0-0.06); Absolute Basophil Count 0.02 10^3/uL (0.0-0.2); Absolute Eosinophil Count 0.05 10^3/uL (0.0-0.7); Absolute Lymphocyte Count 0.92 10^3/uL (1.2-3.4); Absolute Monocyte Count 0.29 10^3/uL (0.1-0.8); Absolute Neutrophil Count 8.12 10^3/uL (1.2-6.7); Basophils % 0.2; Eosinophils % 0.5; HCT 24.3 % (36.0-46.0); HGB 7.8 g/dL (11.2-15.7); Immature Grans % 0.3; Lymphocytes % 9.8; MCH 29.9 pg (27.0-33.0); MCHC 32.1 % (32.0-36.0); MCV 93.1 fL (80-95); MPV 11.4 fL (8.0-11.0); Monocytes % 3.1; Neutrophils % 86.1; Nucleated RBC 0 %; Platelet Count 157 10^3/uL (130-400); RBC 2.61 10^6/uL (3.93-5.22); RDW 12.6 % (11.7-14.6); WBC 9.43 10^3/uL (4.4-10.8)
[2021-07-03 01:48] LABS: Diff Comment RBC Morph Reviewed; Microcytosis 1+
[2021-07-03 01:56] LABS: COVID-19 PCR Negative (Negative)
[2021-07-03] MEDS: Normal Saline Flush 10 ML SYR IVP (02:09)
[2021-07-03] MEDS: Normal Saline 1,000 ML 250 ML IV ×2 (02:09→05:34)
[2021-07-03] MEDS: POTASSIUM CHLORIDE/D5-0.45NACL 1,000 ML 100 MEQ IV ×2 (08:52→19:09)
--- NOTE | 2021-07-03 09:17 | W.ANESPOSTOP ---
Postoperative Evaluation Date, Time and Location Date Performed: 07/03/21 Time Performed: 09:17 Patient Location: Day Surgery Unit Vital Signs Most Recent Imported Vital Signs: Most Recent Vital Signs Temp Pulse Resp BP Pulse Ox 36.5 C 65 16 130/79 99 07/03/21 08:40 07/03/21 08:40 07/03/21 08:40 07/03/21 08:40 07/03/21 08:40 Most Recent Manually Entered Vital Signs: Adult Blood Pressure: 136/83 Heart Rate: 74 Respirations: 12 Oxygen Saturation (%): 96 Temperature (C): 36.3 C Pain Score (0-10 Scale): 0 Pain Score Most Recent Pain Score: Most Recent Pain Score Pain Level 0 07/03/21 08:40 Assessment Mental Status: Awake (Alert & Oriented to Patient Baseline) Airway and Respiratory Function: Patent airway with normal (patient baseline) respiratory exam Cardiovascular Function: Hemodynamically Stable Hydration Status: Adequately Hydrated Nausea & Vomiting: No Nausea or Vomiting Pain: Pt. Denies Any Pain Peripheral Nerve Block: Patient did not receive a nerve block
[2021-07-03] MEDS: IRON SUCROSE COMPLEX 200 MG in Normal Saline 100 ML 400 MG IVPB (10:07)
[2021-07-03] MEDS: Magnesium Citrate 300 ML BTL PO (11:05)
--- NOTE | 2021-07-03 11:07 | PHA.REVIEW ---
Pharmacy Admission Review - Admission Clinical Review (Last Reviewed 06/28/21 @ 11:16 by Esthela Chairez) Acute GI bleeding (Acute) Abnormal colonoscopy (Acute) lisinopril Adverse Reaction (Intermediate, Verified 07/02/21 22:32) COUGH Resuscitation Status Full Code Height 5 ft 3 in Weight 71 kg - Renal Dosing Renal Dosing: BUN 32 mg/dL (7-18) H 07/02/21 22:20 Creatinine 1.2 mg/dL (0.55-1.02) H 07/02/21 22:20 Medications needing adjustments: Reviewed (Crcl ~37.11 mL/min, current meds okay) - Anticoagulation Anticoagulation: Hgb 7.8 g/dL (11.2-15.7) L 07/03/21 01:17 Hct 24.3 % (36.0-46.0) L 07/03/21 01:17 Plt Count 157 10^3/uL (130-400) 07/03/21 01:17 INR 1.0 (0.9-1.1) 07/02/21 22:20 Creatinine 1.2 mg/dL (0.55-1.02) H 07/02/21 22:20 DVT Prophylaxis: N/A (GI bleed) Therapeutic Anticoagulation: N/A - Opiate Usage Evaluate Pain Scale/Pains Meds: N/A - Relevant Labs Sodium 140 mmol/L (136-145) 07/02/21 22:20 Potassium 3.2 mmol/L (3.5-5.1) L 07/02/21 22:20 Chloride 104 mmol/L (98-107) 07/02/21 22:20 Magnesium 1.7 mg/dL (1.8-2.4) L 07/02/21 22:20 Electrolytes, C-Reactive P, ESR: Intervened (Potassium replacement ordered, will mention to provider about mag.) - DM Control DM Control: Glucose 194 mg/dL (74-106) H 07/02/21 22:20 Insulin Dosing: N/A (BG a little high, no DM noted in medical history, no A1c on file.) - Heart Failure/AR Heart Failure/AR: Troponin I < 0.05 ng/mL (<0.06) 07/02/21 22:20 EF%, TIGIST's, B-Blockers, Diuretics: Reviewed - BP Control BP Control: Blood Pressure 130/79 Blood Pressure 137/88 Blood Pressure 111/67 Blood Pressure 118/68 Blood Pressure 118/67 Blood Pressure 116/63 Blood Pressure 138/78 Blood Pressure 109/71 Blood Pressure 114/69 If elevated: N/A (BP has been within normal limits so far this admission.) - Qtc Review If Elevated: N/A (QTc 447 on admission) - IV to PO Switch IV Medications: Reviewed - Home Meds Home Med List reviewed: Reviewed Relevent Home Meds Not ordered & why?: cholecalciferol, cyanocobalamin, HCTZ, losartan, omeprazole - Current meds Current Medication Order Review: Reviewed - Comments Comments/Follow Ups: Watch BP, H/H, mag, K+, SCr, labs and for med changes (possible renal dose adjustments, home meds).
--- NOTE | 2021-07-03 12:40 | PDOC.CMIN ---
- If Service Date Differs Date of service: 07/03/21 Time of Service: 12:40 Care Management Initial Assess REASON FOR HOSPITALIZATION:: GI Bleed PAST MEDICAL HISTORY/PAST SURGICAL HISTORY:: Medical History . Anxiety as acute reaction to exceptional stress. Foot pain, left. Foot pain, right. History of gastroesophageal reflux (GERD). Hypertension. Intermittent palpitations. Lipoma (01/29/13). LEFT BREAST-on U/S. stable on mammo [facility] [place] 2012. Migraine. trigeminal neuralgia. Osteopenia. Pityriasis versicolor (01/29/13). RECURRENT. Tubulovillous adenoma polyp of colon. UTI (urinary tract infection). Surgical History (Updated 06/28/21 @ 11:16 by Esthela Chairez). History of colonoscopy PREVIOUS FUNCTIONAL STATUS/SOCIAL/FAMILY SUPPORTS:: Janyn lives in [facility] with her Moi. She is independent at baseline and has supportive family and friends. CURRENT FUNCTIONAL STATUS:: Janny was sitting up in bed when CM met with her. She was pleasant and easily engaged in conversation. She reported having a colonoscopy on Saturday with polyp removal and rectal bleeding on Saturday. She is anticipating having another colonoscopy today to see if the area needs to be cauterized. ADVANCE DIRECTIVES:: None on file Has patient been provided with info about the portal/API?: Yes Did the patient sign up for the portal?: Yes (Prior to admission.) CODE STATUS:: Full Code INSURANCE COVERAGE / FINANCIAL ISSUES:: [facility] [employer]. Medicare CURRENT HOME/COMMUNITY SERVICES/EQUIPMENT:: None PRIMARY CARE PHYSICIAN:: [facility] POTENTIAL DISCHARGE NEEDS:: Follow up appointment PATIENT/FAMILY EDUCATION NEEDS:: Review discharge instructions, limitations and plan to follow up with community providers and discharge plan of care as prescribed. ask me three. TRANSPORTATION:: Via private vehicle with . PLAN:: Anticipate that Janny will be discharged home when medically cleared by surgeon via private vehicle with family. She will need to follow up with community providers. No new [facility] services are anticipated at this time.
--- NOTE | 2021-07-03 13:13 | W.PM.HP.N ---
Date of service: 07/03/21 Time of Service: 13:13 Assessment and Plan Assessment and plan (1) Post-polypectomy bleeding: Status: Acute Assessment and plan: -Venofer 200 mg IV She did receive a bottle of mag citrate. However she did not get it until 11 AM. We will see how she does later on this afternoon. If she still having bleeding then we may do a colonoscopy and a clip. If she does not have any bleeding, then we will can continue with observation. Patient does not really want another colonoscopy. She feels much better today than when she came into the ER last No signs of perforation or infection History of Present Illness Narrative: Patient came in last night with pretty significant rectal bleeding. She is having a significant amount of dark red blood. She had a colonoscopy and polypectomy in the cecum on 06/28. She has no fever. She has no white count. She has no nausea vomiting. She was not having any abdominal pain. She is not on aspirin. She does not take a large amount of NSAIDs. She is not on any blood thinners. She went for a walk pretty much that day but denies any other trauma. Today she did have a bowel movement this morning and it was more solid and not the heavy bleeding she was experiencing at home. Her hemoglobin today was 7.9. And she does not feel short of breath or weak or dizzy. She just feels tired. Review of Systems All systems reviewed & are unremarkable except as noted in HPI and below [facility] History Anxiety as acute reaction to exceptional stress Foot pain, left Foot pain, right History of gastroesophageal reflux (GERD) Hypertension Intermittent palpitations Lipoma (01/29/13) LEFT BREAST-on U/S stable on mammo [facility] [place] 2012 Migraine trigeminal neuralgia Osteopenia Pityriasis versicolor (01/29/13) RECURRENT Tubulovillous adenoma polyp of colon UTI (urinary tract infection) Surgical History History of colonoscopy Family History Mother Essential hypertension Heart disease Father , 51 Hodgkin's disease Sister Essential hypertension Maternal Grandfather , 73 Heart disease Stroke Paternal Grandfather , 76 Personal history of malignant neoplasm Prostate Maternal Grandmother , 60 Heart disease Brother Essential hypertension Sister No problems noted. Sister No problems noted. Son Depression Daughter No problems noted. Social History Smoking/Tobacco Use Status: Never Smoking risk assessment performed?: Yes Alcohol Intake: current Alcohol Intake frequency: 0-2 drinks per day Alcohol type: wine and hard liquor Drug use: Never Substance use type: does not use Caregiver/Support person: No Household members: spouse Communication Needs: None Pets and animals: Yes Pets and animals: cat(s) Sexually active: No Do you think of yourself as: straight/heterosexual Current gender identity: female What is your relationship status?: How often do you talk on the phone with friends or family?: decline to answer How often do you get together with friends or relatives?: decline to answer How often do you attend jain or methodist services?: decline to answer Do you belong to any clubs or organized social groups?: yes Panel score (0-1 are the most socially isolated patients): 2 What type of physical activity do you participate in: other Duration: 60-90 minutes/day Frequency: 3-4 times per week Karley/Tenriism: Episcopal Special karley needs: No Do you feel safe at home: Yes Do you feel safe in your relationship?: Yes Meds Allergies and Home Medications Allergies Allergy/AdvReac Type Severity Reaction Status Date / Time lisinopril AdvReac Intermediate COUGH Verified 07/02/21 22:32 Home Medications Medication Instructions Recorded Confirmed Type cyanocobalamin (vitamin B-12) 2,500 mcg SUBLINGUAL DAILY 01/16/13 07/02/21 History [Vitamin B-12] cholecalciferol (vitamin D3) 2,000 unit PO DAILY tab 01/19/13 07/02/21 History [Vitamin D3] hydrochlorothiazide 25 mg tablet 25 mg PO DAILY #90 tab-cap 09/29/20 07/02/21 Rx losartan 50 mg tablet 50 mg PO DAILY #90 tab 09/29/20 07/02/21 Rx omeprazole 20 mg capsule,delayed 20 mg PO DAILY #90 cap 09/29/20 07/02/21 Rx release Exam Resp Effort & Inspection: normal respiratory effort and able to speak in complete sentences Auscultation: clear to auscultation bilaterally GI Palpation: soft and nontender Auscultation: normal bowel sounds Extrem General: no clubbing, cyanosis or edema Results Labs Result diagrams: 07/03/21 01:17 07/02/21 22:20 Labs: Laboratory Results - last 24 hr 07/02/21 07/02/21 07/02/21 22:20 22:20 22:20 WBC 9.95 RBC 3.01 L Hgb 9.0 L Hct 27.3 L MCV 90.7 MCH 29.9 MCHC 33.0 RDW 12.5 Plt Count 224 MPV 11.6 H Immature Gran % Neutrophils % Lymphocytes % Monocytes % Eosinophils % Basophils % Nucleated RBC % Absolute Neutrophils Absolute Lymphocytes Absolute Monocytes Absolute Eosinophils Absolute Basophils RBC Morphology Microcytosis PT 10.0 INR 1.0 Sodium 140 Potassium 3.2 L Chloride 104 Carbon Dioxide 24.4 Anion Gap 11.6 H BUN 32 H Creatinine 1.2 H Estimated GFR/1.73 m2 44.68 Glucose 194 H Calcium 8.2 L Magnesium Total Bilirubin 0.2 AST 11 L ALT 15 Alkaline Phosphatase 52 Troponin I < 0.05 Total Protein 6.6 Albumin 3.2 L COVID-19 Source SARS-CoV-2 (PCR) Patient ABO/Rh Antibody Screen 07/02/21 07/02/21 07/03/21 22:20 22:20 00:50 WBC RBC Hgb Hct MCV MCH MCHC RDW Plt Count MPV Immature Gran % Neutrophils % Lymphocytes % Monocytes % Eosinophils % Basophils % Nucleated RBC % Absolute Neutrophils Absolute Lymphocytes Absolute Monocytes Absolute Eosinophils Absolute Basophils RBC Morphology Microcytosis PT INR Sodium Potassium Chloride Carbon Dioxide Anion Gap BUN Creatinine Estimated GFR/1.73 m2 Glucose Calcium Magnesium 1.7 L Total Bilirubin AST ALT Alkaline Phosphatase Troponin I Total Protein Albumin COVID-19 Source Nasal/Nares SARS-CoV-2 (PCR) Negative Patient ABO/Rh A Positive Antibody Screen NEGATIVE 07/03/21 01:17 WBC 9.43 RBC 2.61 L Hgb 7.8 L Hct 24.3 L MCV 93.1 MCH 29.9 MCHC 32.1 RDW 12.6 Plt Count 157 MPV 11.4 H Immature Gran % 0.3 Neutrophils % 86.1 Lymphocytes % 9.8 Monocytes % 3.1 Eosinophils % 0.5 Basophils % 0.2 Nucleated RBC % 0 Absolute Neutrophils 8.12 H Absolute Lymphocytes 0.92 L Absolute Monocytes 0.29 Absolute Eosinophils 0.05 Absolute Basophils 0.02 RBC Morphology See Below Microcytosis 1+ PT INR Sodium Potassium Chloride Carbon Dioxide Anion Gap BUN Creatinine Estimated GFR/1.73 m2 Glucose Calcium Magnesium Total Bilirubin AST ALT Alkaline Phosphatase Troponin I Total Protein Albumin COVID-19 Source SARS-CoV-2 (PCR) Patient ABO/Rh Antibody Screen Last Vital Signs Temp 36.8 C 07/03/21 12:50 Pulse 73 07/03/21 12:50 Resp 16 07/03/21 12:50 BP 130/74 07/03/21 12:50 Pulse Ox 98 07/03/21 12:50
--- NOTE | 2021-07-03 14:22 | W.PM.PROGNOT ---
Date of Service Date of service: 07/03/21 Time of Service: 14:22 Assessment and Plan Assessment and plan (1) Post-polypectomy bleeding: Status: Acute Assessment and plan: Hgb is low. She has no abdominal pain Recheck Hgb. If below 7 may need one unit of blood. Will keep on clear liquids If bleeding stopps will get her home tomorrow If still having bloody Bm's then will scope tomorrow Subjective Subjective Interval history since last seen: Mrs Cheung is doing OK. She feels tired. Hgb did drop some more overnight to 7.8. She had 2 BM's this morning with blood. No BM's since this am. Took Mag Citrate without results. Exam Const General: cooperative, healthy appearing and comfortable Orientation: alert and oriented x3 HENMT Head: normocephalic and atraumatic Resp Effort & Inspection: normal respiratory effort Auscultation: clear to auscultation bilaterally Cardio Rate: regular rate Rhythm: regular rhythm Heart Sounds: no gallops, no murmurs and no rubs GI Palpation: soft, no hepatosplenomegaly and nontender Objective Last Vital Signs Temp 98.2 F 07/03/21 12:50 Pulse 73 07/03/21 12:50 Resp 16 07/03/21 12:50 BP 130/74 07/03/21 12:50 Pulse Ox 98 07/03/21 12:50 Laboratory Results - last 24 hr 07/02/21 07/02/21 07/02/21 22:20 22:20 22:20 WBC 9.95 RBC 3.01 L Hgb 9.0 L Hct 27.3 L MCV 90.7 MCH 29.9 MCHC 33.0 RDW 12.5 Plt Count 224 MPV 11.6 H Immature Gran % Neutrophils % Lymphocytes % Monocytes % Eosinophils % Basophils % Nucleated RBC % Absolute Neutrophils Absolute Lymphocytes Absolute Monocytes Absolute Eosinophils Absolute Basophils RBC Morphology Microcytosis PT 10.0 INR 1.0 Sodium 140 Potassium 3.2 L Chloride 104 Carbon Dioxide 24.4 Anion Gap 11.6 H BUN 32 H Creatinine 1.2 H Estimated GFR/1.73 m2 44.68 Glucose 194 H Calcium 8.2 L Magnesium Total Bilirubin 0.2 AST 11 L ALT 15 Alkaline Phosphatase 52 Troponin I < 0.05 Total Protein 6.6 Albumin 3.2 L COVID-19 Source SARS-CoV-2 (PCR) Patient ABO/Rh Antibody Screen 07/02/21 07/02/21 07/03/21 22:20 22:20 00:50 WBC RBC Hgb Hct MCV MCH MCHC RDW Plt Count MPV Immature Gran % Neutrophils % Lymphocytes % Monocytes % Eosinophils % Basophils % Nucleated RBC % Absolute Neutrophils Absolute Lymphocytes Absolute Monocytes Absolute Eosinophils Absolute Basophils RBC Morphology Microcytosis PT INR Sodium Potassium Chloride Carbon Dioxide Anion Gap BUN Creatinine Estimated GFR/1.73 m2 Glucose Calcium Magnesium 1.7 L Total Bilirubin AST ALT Alkaline Phosphatase Troponin I Total Protein Albumin COVID-19 Source Nasal/Nares SARS-CoV-2 (PCR) Negative Patient ABO/Rh A Positive Antibody Screen NEGATIVE 07/03/21 01:17 WBC 9.43 RBC 2.61 L Hgb 7.8 L Hct 24.3 L MCV 93.1 MCH 29.9 MCHC 32.1 RDW 12.6 Plt Count 157 MPV 11.4 H Immature Gran % 0.3 Neutrophils % 86.1 Lymphocytes % 9.8 Monocytes % 3.1 Eosinophils % 0.5 Basophils % 0.2 Nucleated RBC % 0 Absolute Neutrophils 8.12 H Absolute Lymphocytes 0.92 L Absolute Monocytes 0.29 Absolute Eosinophils 0.05 Absolute Basophils 0.02 RBC Morphology See Below Microcytosis 1+ PT INR Sodium Potassium Chloride Carbon Dioxide Anion Gap BUN Creatinine Estimated GFR/1.73 m2 Glucose Calcium Magnesium Total Bilirubin AST ALT Alkaline Phosphatase Troponin I Total Protein Albumin COVID-19 Source SARS-CoV-2 (PCR) Patient ABO/Rh Antibody Screen
[2021-07-03 15:42] LABS: HGB 7.6 g/dL (11.2-15.7)
[2021-07-03] MEDS: Acetaminophen 325 MG TAB 650 MG PO (21:39)
[2021-07-04] VITALS (10 sets, daily range): BP systolic 125–164; BP diastolic 77–93; PULSE 59–83; RESP 16–18; TEMP 36.3–36.9; O2SAT 96–100; BMI 27.7
[2021-07-04] MEDS: POTASSIUM CHLORIDE/D5-0.45NACL 1,000 ML 100 MEQ IV (04:23)
[2021-07-04 07:12] LABS: Abs Immature Grans 0.02 10^3/uL (0.0-0.06); Absolute Basophil Count 0.03 10^3/uL (0.0-0.2); Absolute Eosinophil Count 0.14 10^3/uL (0.0-0.7); Absolute Lymphocyte Count 1.29 10^3/uL (1.2-3.4); Absolute Monocyte Count 0.25 10^3/uL (0.1-0.8); Absolute Neutrophil Count 3.36 10^3/uL (1.2-6.7); Basophils % 0.6; Eosinophils % 2.8; HCT 24.1 % (36.0-46.0); HGB 7.7 g/dL (11.2-15.7); Immature Grans % 0.4; Lymphocytes % 25.3; MCH 30.1 pg (27.0-33.0); MCV 94.1 fL (80-95); Monocytes % 4.9; Nucleated RBC 0 %; RBC 2.56 10^6/uL (3.93-5.22); RDW 12.8 % (11.7-14.6); RDW-SD 43.9 fL; WBC 5.09 10^3/uL (4.4-10.8)
[2021-07-04 07:34] LABS: Diff Comment Diff Reviewed; RBC Morphology Normal
[2021-07-04] MEDS: Losartan 50 MG TAB PO (07:45)
[2021-07-04] MEDS: Omeprazole 20 MG CAPCR PO (07:45)
--- NOTE | 2021-07-04 09:11 | W.PM.PROGNOT ---
Documented by User: KOTA Luque 07/04/21 09:14 Date of Service Date of service: 07/04/21 Time of Service: 09:11 Assessment and Plan Assessment and plan (1) Post-polypectomy bleeding: Status: Acute Assessment and plan: Hgb is low, 7.7 this morning. She has no abdominal pain, chest pain or SOB Currently NPO Rectal bleeding has continued, plan on Colonoscopy for further evaluation to address the bleeding source. She has completed the bowel prep. Subjective Subjective Interval history since last seen: Arrived with the patient resting comfortably. She denies any pain at this time. She reports that she has completed the bowel prep for Colonoscopy and has been passing clear liquid with blood. Denies any chest pain or SOB. Exam Const General: cooperative, healthy appearing and comfortable Orientation: alert and oriented x3 Resp Effort & Inspection: normal respiratory effort, no audible wheezes and no cough Objective Last Vital Signs Temp 36.4 C L 07/04/21 07:55 Pulse 65 07/04/21 07:55 Resp 16 07/04/21 07:55 BP 155/84 H 07/04/21 07:55 Pulse Ox 100 07/04/21 07:55 Laboratory Results - last 24 hr 07/03/21 07/04/21 15:27 06:12 WBC 5.09 RBC 2.56 L Hgb 7.6 L 7.7 L Hct 24.0 L 24.1 L MCV 94.1 MCH 30.1 MCHC 32.0 RDW 12.8 Plt Count MPV Immature Gran % 0.4 Neutrophils % 66.0 Lymphocytes % 25.3 Monocytes % 4.9 Eosinophils % 2.8 Basophils % 0.6 Nucleated RBC % 0 Absolute Neutrophils 3.36 Absolute Lymphocytes 1.29 Absolute Monocytes 0.25 Absolute Eosinophils 0.14 Absolute Basophils 0.03 RBC Morphology Normal Documented by User: Liseth Dietrich DO 07/04/21 11:24 Assessment and Plan Assessment and plan (1) Post-polypectomy bleeding: Status: Acute Assessment and plan: Patient is still having bleeding today. We will plan on repeat colonoscopy with clip placement Informed consent is obtained for the procedural (explained in simple layman's terms that the pt and/or family could understand) explaining risks vs benefits and alternatives to the procedure and consequences if we do not do the procedure and need/rational for the procedure. Risks include but are not limited to: bleeding, infection, perforation of colon. This would necessitate emergency surgery to repair the damage w/ possible ostomy; and other associated complications w/ the required surgery. Also complications of anesthesia including aspiration, NC/CVA/. I discussed with the patient would they could expect during the procedure, post procedure and recovery time and risks.
--- NOTE | 2021-07-04 09:56 | CMPROGNOTE_ITS ---
- If Service Date Differs Date of service: 07/04/21 Time of Service: 18:51 Care Management Progress Note S/O: Janny continues to be closely monitored and treated, she anticipates leaving later tonight and shares no concerns regarding her discharge. Her is at her bedside and both are friendly in interaction and share appreciation for friendly staff and good care. CM continues to follow. A: 70 year old female admitted to [facility] 07/03/21 for GI Bleed P: Janny will be discharged home when medically cleared by surgeon via private vehicle with family. She will need to follow up with community providers. No new [facility] services are anticipated at this time.
--- NOTE | 2021-07-04 10:34 | W.ANESPRE ---
General Info Date of Service Date Performed: 07/04/21 Height: 5 ft 3 in Weight: 71 kg Body Mass Index (BMI): 27.7 Surgical Procedure: Operation Date: 07/04/21 14:05 Proposed Procedures Side Surgeon p Colonoscopy Liseth Dietrich DO Meds Allergies and Home Medications Allergies Allergy/AdvReac Type Severity Reaction Status Date / Time lisinopril AdvReac Intermediate COUGH Verified 07/02/21 22:32 Home Medication Medication Instructions Recorded cyanocobalamin (vitamin B-12) 2,500 mcg SUBLINGUAL DAILY 01/16/13 [Vitamin B-12] cholecalciferol (vitamin D3) 2,000 unit PO DAILY tab 01/19/13 [Vitamin D3] hydrochlorothiazide 25 mg tablet 25 mg PO DAILY #90 tab-cap 09/29/20 losartan 50 mg tablet 50 mg PO DAILY #90 tab 09/29/20 omeprazole 20 mg capsule,delayed 20 mg PO DAILY #90 cap 09/29/20 release Current Visit Medications: Current Medications Generic Name Dose Route Start Last Admin Trade Name Freq PRN Reason Stop Dose Admin Acetaminophen 650 mg 07/03/21 21:02 07/03/21 21:39 Acetaminophen 325 Mg Tab PO 650 mg Q6H PRN PRN Administration Potassium Chloride/Sodium Chloride 1,000 mls @ 100 mls/hr 07/03/21 08:45 07/04/21 04:23 Kcl 20meq/D5-0.45% Nacl IV 100 mls/hr INFUSION GIANA Administration IV Miscellaneous Supplies 2 each 07/02/21 22:30 Iv Access IV DIRECTED GIANA Losartan Potassium 50 mg 07/04/21 08:30 07/04/21 07:45 Losartan 50 Mg Tab PO 50 mg DAILY GIANA Administration Omeprazole 20 mg 07/04/21 07:30 07/04/21 07:45 Omeprazole 20 Mg Capcr PO 20 mg DAILY@0730 GIANA Administration Sodium Chloride 0 ml 07/02/21 22:25 07/03/21 02:09 Normal Saline Flush 10 Ml Syr IVP 10 ml PRN PRN Administration PFSH Active Problems Active Problems: Problem Status Onset Code Post-polypectomy bleeding Peptic reflux disease K21.9 Dysuria R30.0 Annual physical exam Z00.00 Colon cancer screening Z12.11 Weight gain R63.5 Acute GI bleeding K92.2 Abnormal colonoscopy R93.3 Foot pain, left M79.672 Foot pain, right M79.671 UTI (urinary tract infection) N39.0 Anxiety as acute reaction to exceptional stress F41.1, F43.0 Intermittent palpitations R00.2 History of gastroesophageal reflux (GERD) Z87.19 Tubulovillous adenoma polyp of colon D12.6 Hypertension I10 Lipoma 01/29/13 D17.9 Migraine G43.909 Osteopenia M85.80 Pityriasis versicolor 01/29/13 B36.0 Medical History Medical History Anxiety as acute reaction to exceptional stress Foot pain, left Foot pain, right History of gastroesophageal reflux (GERD) Hypertension Intermittent palpitations Lipoma (01/29/13) LEFT BREAST-on U/S stable on mammo [facility] 2012 Migraine trigeminal neuralgia Osteopenia Pityriasis versicolor (01/29/13) RECURRENT Tubulovillous adenoma polyp of colon UTI (urinary tract infection) Surgical History Surgical History History of colonoscopy Tobacco Smoking/Tobacco Use Status: Never Alcohol Alcohol Intake: current Alcohol intake frequency: 0-2 drinks per day Alcohol type: wine and hard liquor Substance Use Substance use: Never Substance use type: does not use Vital Signs and Lab Results Vital Signs Most Recent Vital Signs in EMR: Most Recent Vital Signs Temp Pulse Resp BP Pulse Ox 36.4 C L 65 16 155/84 H 100 07/04/21 07:55 07/04/21 07:55 07/04/21 07:55 07/04/21 07:55 07/04/21 07:55 Point of Care Results Point of Care Results: Finger Stick Blood Glucose 201 07/02/21 22:31 Lab Results Result Diagrams: 07/04/21 06:12 07/02/21 22:20 Blood Type / Crossmatch: Patient ABO/Rh A Positive 07/02/21 22:20 07/02/21 Antibody Screen NEGATIVE 07/02/21 22:20 07/02/21 Complete Blood Count: White Blood Count 5.09 10^3/uL (4.4-10.8) 07/04/21 06:12 07/04/21 Red Blood Count 2.56 10^6/uL (3.93-5.22) L 07/04/21 06:12 07/04/21 Hemoglobin 7.7 g/dL (11.2-15.7) L 07/04/21 06:12 07/04/21 Hematocrit 24.1 % (36.0-46.0) L 07/04/21 06:12 07/04/21 Platelet Count 10^3/uL (130-400) 07/04/21 06:12 07/04/21 Complete Metabolic Panel: Sodium Level 140 mmol/L (136-145) 07/02/21 22:20 07/02/21 Potassium Level 3.2 mmol/L (3.5-5.1) L 07/02/21 22:20 07/02/21 Chloride Level 104 mmol/L (98-107) 07/02/21 22:20 07/02/21 Carbon Dioxide Level 24.4 mmol/L (21.0-32.0) 07/02/21 22:20 07/02/21 Blood Urea Nitrogen 32 mg/dL (7-18) H 07/02/21 22:20 07/02/21 Creatinine 1.2 mg/dL (0.55-1.02) H 07/02/21 22:20 07/02/21 Estimated GFR/1.73 m2 44.68 (mL/min/1.73m2) 07/02/21 22:20 07/02/21 Magnesium Level 1.7 mg/dL (1.8-2.4) L 07/02/21 22:20 07/02/21 Calcium Level 8.2 mg/dL (8.5-10.1) L 07/02/21 22:20 07/02/21 Albumin 3.2 g/dL (3.4-5.0) L 07/02/21 22:20 07/02/21 Glucose Level 194 mg/dL (74-106) H 07/02/21 22:20 07/02/21 Liver Function Panel: Alanine Aminotransferase (ALT/SGPT) 15 U/L (14-59) 07/02/21 22:20 07/02/21 Aspartate Amino Transf (AST/SGOT) 11 U/L (15-37) L 07/02/21 22:20 07/02/21 Coagulation Panel: INR International Normalized Ratio 1.0 (0.9-1.1) 07/02/21 22:20 07/02/21 Prothrombin Time 10.0 sec (9.3-11.0) 07/02/21 22:20 07/02/21 Cardiac Panel: Troponin I < 0.05 ng/mL (<0.06) 07/02/21 22:20 07/02/21 Arterial Blood Gas: No Data to Display Venous Blood Gas: No Data to Display Pancreas Panel: No Data to Display Thyroid Panel: No Data to Display Infectious Disease: Coronavirus (COVID-19)(PCR) Negative (Negative) 07/03/21 00:50 07/03/21 Coronavirus 2019 Source Nasal/Nares 07/03/21 00:50 07/03/21 Blood Cultures: No Data to Display Toxicology Panel: No Data to Display Imaging and Studies Imaging and Studies Stress Test Summary: 2012: negative for ischemia. Anesthesia Assessment and Plan Anesthesia History Personal History: No History of Anesthesia Complications Family History: No Family History of Anesthesia Complications Exercise Tolerance Exercise Tolerance: Metabolic Equivalents>4 Pertinent Negatives Pertinent Negatives: No Symptoms of GERD, No Major Cardiovascular Symptoms or Complaints, No Major Pulmonary Symptoms or Complaints and No History of CVA/TIA Cardiac & Pulmonary Exam Cardiac Exam: Normal S1/S2 Heart Sounds Pulmonary Exam: Clear Bilateral Breath Sounds Airway Exam Known Difficult Airway: No Mallampati Class: 2 Mouth Opening: Normal (> 3cm) Thyromental Distance: Greater than 3 cm Neck Range of Motion: Full ROM Neck Circumference: Normal Teeth Condition: Normal Dentition ASA Classification ASA Score: ASA 2 Emergency Case?: No NPO Status NPO Status: NPO Clears >2 hours, Solids >8 hours Anesthesia Plan Resuscitation Status: Full Code Anesthesia Technique: General Anesthesia Airway Planned: Natural Airway Monitors Used: Standard Monitors
[2021-07-04] MEDS: Lactated Ringers 1,000 ML 50 ML IV (11:59)
--- NOTE | 2021-07-04 11:59 | W.NUTRFU ---
Date of service: 07/04/21 Time of Service: 11:59 Nutrition Note NOTE: Ms. Cheung is NPO for colonoscopy. Weight has been stable. BMI is 27.7 kg/m2 which is WNL for her age. Will continue to follow progress. Will provide information on high iron nutrition therapy if she needs it. Time Spent in Nutritional Counseling and Treatment: 0
--- NOTE | 2021-07-04 12:54 | W.COLOREPORT ---
Colonoscopy Report Date of procedure: 07/04/21 Pre-op diagnosis general: postpolypectomy bleed Procedure: CE clip placement for bleeding Surgeon: Liseth Dietrich Anesthesia Type: General LMA/ETT Pathology: other Complications: None Disposition: floor Prep: Other (Mg Citrate) Procedure Description: After informed consent was obtained the patient was taken to the procedure room and placed in a left decubitous position. Monitors were applied and a time out was done. The patients name, date of , procedure, allergies to medications and metal in their body was reviewed. The patient was then sedated. Once sedated and comfortable a rectal exam was done. External exam was normal. Internal exam revealed a normal sphincter tone and no palpable masses. The scope was then introduced and retrofelexed. Clots were noted in the left colon on her way to the cecum. No internal hemorrhoids were identified. The scope was then advanced to the cecum without difficulty. The TI and appendiceal orifice were identified. Small area of slow, but persistent bight red bleeding in the cecum. Endo Clip placed across the defect. There is no other source of bleeding to be found. The scope was removed and the patient was woken up and taken back to Same day surgery in stable condition. The patient tolerated the procedure well and there were no immediate complications. Follow up: The patient should follow up in 3 years unless they develop changes in bowel habits or other new gastrointestinal complaints.
--- NOTE | 2021-07-04 13:23 | W.ANESPOSTOP ---
Postoperative Evaluation Date, Time and Location Date Performed: 07/04/21 Time Performed: 13:23 Patient Location: Med/Surg Vital Signs Most Recent Imported Vital Signs: Most Recent Vital Signs Temp Pulse Resp BP Pulse Ox 36.3 C L 61 16 126/80 96 07/04/21 12:54 07/04/21 12:54 07/04/21 12:54 07/04/21 12:54 07/04/21 12:54 Most Recent Vital Signs Temp Pulse Resp BP Pulse Ox 36.5 C 65 16 130/79 99 07/03/21 08:40 07/03/21 08:40 07/03/21 08:40 07/03/21 08:40 07/03/21 08:40 Pain Score Most Recent Pain Score: Most Recent Pain Score Pain Level 0 07/04/21 12:54 Assessment Mental Status: Awake (Alert & Oriented to Patient Baseline) Airway and Respiratory Function: Patent airway with normal (patient baseline) respiratory exam Cardiovascular Function: Hemodynamically Stable Hydration Status: Adequately Hydrated Nausea & Vomiting: No Nausea or Vomiting Pain: Pt. Denies Any Pain Peripheral Nerve Block: Patient did not receive a nerve block
--- NOTE | 2021-07-04 14:25 | CHAPLAIN ---
Janny was resting in bed when I visited. She was pleasant and told me she is waiting to have a follow up colonoscopy, and after one last week. She hasn't had anything to eat in 48 hours so hoping her procedure will be soon. She expects her to be in to visit later today. They moved to [facility] from [place] after retiring and have other family here in the area. Janny seems to be comfortable being here, but is anxious to get the procedure completed.
--- NOTE | 2021-07-04 16:18 | PDOC.DSDIS_ITS ---
Discharge Plan Disposition Patient Disposition: HOME Condition: Serious Discharge Details Reason For Visit: post-polypectomy bleed Admit Date/Time: 07/03/21 00:02 Admit Provider: Liseth Dietrich Attending Provider: Liseth Dietrich Primary Care Provider: [place] Home Meds and New Rx's Prescriptions: No Action losartan 50 mg tablet 50 mg PO DAILY Qty: 90 RF: 3 hydrochlorothiazide 25 mg tablet 25 mg PO DAILY Qty: 90 RF: 4 omeprazole 20 mg capsule,delayed release(DR/EC) 20 mg PO DAILY Qty: 90 RF: 3 cyanocobalamin (vitamin B-12) [Vitamin B-12] 2,500 MCG tablet, sublingual 2,500 mcg Sublingual DAILY RF: 0 cholecalciferol (vitamin D3) [Vitamin D3] 2,000 UNIT capsule 2,000 unit PO DAILY RF: 0 Discharge Instructions Additional Instructions: DSU Colonoscopy Post- Op Instructions Instructions for Everyone who is given Anesthesia: For your safety, please do the following for the next twenty-four (24) hours: *Do Not operate a motor vehicle (car, truck, motorcycle, etc.) *Do Not drink alcoholic beverages or use any recreational drugs for the first 24 hours or while taking pain medications. The medications in your body may have a reaction that can be dangerous. *Do Not make any important decisions or sign any important papers. Findings:clip placed across polypectomy site Follow up: in clinic for Hgb/bloodcount check The surgery office will call in am for appt. 1. No lifting over 20 pounds or strenuous activity for 72 hours after your procedure. You may feel fatigued for a few days. 2. After you arrive home you may have a light meal and return to a soft diet (see hand out) as you can tolerate it without feeling sick to your stomach. 3. You may have a bloated, gaseous feeling in your belly (abdomen) after a colonoscopy. Passing gas and belching will help. Walking or lying down on your left side with your knees flexed may relieve the discomfort. Call the office at [phone] (Office) or [phone] (Hospital) right away if you notice any of the following: a.Vomiting of blood or ?coffee ground stools?. b.Rectal bleeding 1Tbsp, blood clots or continuous bleeding. c.Severe belly (abdominal) pain. d.A hard distended belly (abdomen) and an inability to pass gas. 4. Please don?t expect to have a normal BM (bowel movement) for 2-3 days after your procedure. 5. If there are questions regarding the findings of your procedure, please contact your doctor 6. If you are unable to contact your doctor with a problem, contact the hospital at [phone]. 7. Continue all your regular medications unless directed otherwise. 8. No ASA/Nsaid's for the next 10 days. Tylenol is OK. 9. Soft/low fiber diet for the next 72 hrs I understand the above instructions and have no questions. Signature of Patient or Adult Escort Name of Responsible Adult Escort Signature of Nurse Date/Time Gastrointestinal Soft Diet Overview Overview What is a gastrointestinal soft diet? This diet is soft in texture, low in fiber, and easy to digest. The goal is to decrease) in the bowel that may cause and discomfort. This diet is often used after abdominal surgery or as a transitional diet after flares. Meats & Meat Substitutes ? Foods Allowed: Chicken, turkey, fish, tender cuts of beef and pork, ground meats, eggs, creamy nut butters, tofu, skinless hot dogs, sausage patties without whole spices ? Foods to Avoid : Tough, fibrous meats with gristle, meat with casings (hot dogs, sausage, kielbasa), lunch meats with whole spices, shellfish, beans, chunky peanut butter, nuts Fruits and Juices ? Foods Allowed: Fruit juices without pulp, banana, avocado, applesauce, canned peaches and pears, cooked fruit without the skin/seeds ? Foods to Avoid: Juices with pulp, fresh fruit (except banana and avocado), dried fruits, canned fruit cocktail and pineapple, coconut, frozen/thawed berries Vegetables ? Foods Allowed: Well-cooked or canned vegetables, potatoes without skin, tomato sauces, vegetable juice ? Foods to Avoid: Raw vegetables, all corn, all mushrooms, stewed tomatoes, potato skins, stir-pool vegetables, sauerkraut, pickles, olives, all dried beans, peas, and legumes Cereals and Grains ? Foods Allowed: Low- fiber dry or cooked cereals (less than 2 grams fiber per serving), white rice, pasta, macaroni, or noodles ? Foods to Avoid: Cereals with nuts, berries, dried fruits, whole grain cereals, bran cereals, granola, brown or wild rice, whole grain pasta Breads and Crackers ? Foods Allowed: White/refined breads and rolls, plain bagel, toast, plain crackers, charu crackers ? Foods to Avoid: Whole grain breads- including white whole grain; bread/ rolls with raisins, nuts or seeds, multi-grain crackers Dairy ? Foods Allowed: Milk, cheese, yogurt, milkshakes, pudding, ice cream, cottage cheese, sherbet ; lactose free or low lactose versions if lactose intolerant ? Foods to Avoid: Dairy product mixed with fresh fruit (except banana), berries, nuts or seeds Desserts ? Foods Allowed: Plain cake, pudding, custard, ice cream, sherbet, gelatin, fruit whips ? Foods to Avoid: Any dessert that contains nuts, dried fruits, coconut, or fruits with seeds Herbs and Spices ? Foods Allowed: All ground spices or herbs, salt ? Foods to Avoid: Whole spices such as peppercorns, whole cloves, anise seeds, celery seeds, kaur, larry seeds, and fresh herbs Snacks/Other Foods ? Foods Allowed: Sugar, honey, jelly, mayonnaise, mustard, soy sauce, oil, butter, margarine, marshmallows, cookies without dried fruits or nuts, snack chips and pretzels using refined flours ? Foods to Avoid: Carbonated beverages, jams or jellies with seeds, popcorn After several weeks, slowly start to reintroduce the ?Foods to Avoid? back into your diet unless your doctor has told you otherwise. Try a small portion of one of these foods each day. If it does not bother you within 24 hours, it can be added to your diet. Continue to add new foods in this way. Some people may continue to have food sensitivities and may need to continue to avoid certain foods. If you cannot tolerate a food, avoid that food for a few weeks before you try it again. Guidelines when eating 1. Avoid any food that you cannot tolerate or that causes gas, bloating, or stomach pain. 2. Make time for your meals. Do not eat while you are in a hurry. Cut your food into small pieces. Chew each bite to a mashed potato consistency. Do not eat when you cannot concentrate on chewing well. 3. Drink at least 6-8 cups of fluid per day Fluids include: water, coffee, tea, juice, milk, popsicles, soups, gelatin, pudding, ice cream, sherbet, and yogurt. In addition, choose caffeine-free beverages more often, especially if you are having diarrhea. 4. A daily multivitamin may be recommended if diet is limited in amounts or variety of foods. Do not take any herbal supplements without first checking with your doctor. Activity:: see above Equipment/Supplies:: No Equipment Needed Diet:: low fiber DS: Diagnosis Discharge Diagnosis (1) Post-polypectomy bleeding: Status: Acute
[2021-07-04 17:19] LABS: HCT 24.3 % (36.0-46.0); HGB 7.7 g/dL (11.2-15.7)
--- NOTE | 2021-07-04 17:39 | W.PM.PROGNOT ---
Date of Service Date of service: 07/04/21 Time of Service: 17:39 Subjective Subjective Interval history since last seen: Patient is feeling good. She is having no nausea or vomiting. She is having no abdominal pain. She is tolerating p.o.'s. She has not had any further bowel movements. We discussed findings and treatment with her. But did discuss that it is a tubular adenoma and she needs to have this repeated in 3 years time. She really wants to go home today. Hemoglobin appears stable. We will discharge her home and have her follow-up on for hemoglobin check. If she has any further bleeding she should return to the ER. Discharge completed Objective Last Vital Signs Temp 36.5 C 07/04/21 14:50 Pulse 70 07/04/21 15:00 Resp 17 07/04/21 14:50 BP 163/81 H 07/04/21 14:50 Pulse Ox 100 07/04/21 14:50 Laboratory Results - last 24 hr 07/04/21 07/04/21 06:12 17:06 WBC 5.09 RBC 2.56 L Hgb 7.7 L 7.7 L Hct 24.1 L 24.3 L MCV 94.1 MCH 30.1 MCHC 32.0 RDW 12.8 Plt Count MPV Immature Gran % 0.4 Neutrophils % 66.0 Lymphocytes % 25.3 Monocytes % 4.9 Eosinophils % 2.8 Basophils % 0.6 Nucleated RBC % 0 Absolute Neutrophils 3.36 Absolute Lymphocytes 1.29 Absolute Monocytes 0.25 Absolute Eosinophils 0.14 Absolute Basophils 0.03 RBC Morphology Normal
== END 2021-07-04 18:44 | disposition home or self-care (01) ==
LOC: ER 07-03 00:22 → MS 07-03 01:40
PROVIDERS: Surgery; Admitting Provider Surgery; Emergency Provider Physician Assistant; Visit Provider Surgery
PROC: 0DJD8ZZ Inspection of Lower Intestinal Tract, Via Natural or Artificial Opening Endoscopic (ICD-10-PCS; CPT 45378; principal; 2021-07-04 14:00)
DX: K91.840 Postprocedural hemorrhage of a digestive system organ or structure following a digestive system procedure (principal); R55 Syncope and collapse; Y83.8 Other surgical procedures as the cause of abnormal reaction of the patient, or of later complication, without mention of misadventure at the time of the procedure; Z86.010 Personal history of colon polyps; G50.0 Trigeminal neuralgia; M85.80 Other specified disorders of bone density and structure, unspecified site; B36.0 Pityriasis versicolor; I10 Essential (primary) hypertension; F41.8 Other specified anxiety disorders; Z20.822 Contact with and (suspected) exposure to COVID-19
CPT/HCPCS: 45382; 36415; 36416; 80053; 82962; 85027; 86850; 86900; 86901; 87635; 93005; 96360; 96361; 99218; 99291; 83735; 84484; 85014; 85018; 85025; 85610; 93010; G0378; J1756; J2001

== ENCOUNTER → 2021-07-06 08:11 | Outpatient (BNVA) | payer MEDICARE, SELFPAY | PROVIDERS: Visit Provider Surgery | DX: Z48.815 Encounter for surgical aftercare following surgery on the digestive system (principal); D62 Acute posthemorrhagic anemia | CPT/HCPCS: 36415; 99211; 99212 ==

== ENCOUNTER 2021-07-06 14:24 | Outpatient (REF) | payer MEDICARE, SELFPAY ==
[2021-07-06 08:44] LABS: Abs Immature Grans 0.01 10^3/uL (0.0-0.06); Absolute Basophil Count 0.02 10^3/uL (0.0-0.2); Absolute Monocyte Count 0.21 10^3/uL (0.1-0.8); Absolute Neutrophil Count 2.39 10^3/uL (1.2-6.7); Basophils % 0.5; Eosinophils % 2.7; HCT 24.6 % (36.0-46.0); Immature Grans % 0.3; Lymphocytes % 26.8; MCH 30.3 pg (27.0-33.0); MCHC 32.5 % (32.0-36.0); MCV 93.2 fL (80-95); MPV 11.4 fL (8.0-11.0); Monocytes % 5.6; Neutrophils % 64.1; Nucleated RBC 0 %; Platelet Count 209 10^3/uL (130-400); RBC 2.64 10^6/uL (3.93-5.22); RDW 13.1 % (11.7-14.6); RDW-SD 43.2 fL; WBC 3.73 10^3/uL (4.4-10.8)
[2021-07-06 09:00] LABS: Iron 60 ug/dL (50-170); Total Iron Binding Capacity 247 ug/dL (250-450); Transferrin Sat 24 % (15-50)
[2021-07-06 09:08] LABS: Ferritin 246 ng/mL (8-252)
== END 2021-07-06 14:25 | disposition home or self-care (01) ==
LOC: LBN 14:24
PROVIDERS: Visit Provider Surgery
DX: D62 Acute posthemorrhagic anemia (principal)
CPT/HCPCS: 82728; 83540; 83550; 85025

== ENCOUNTER 2022-01-05 01:03 | Outpatient (REF) | payer MEDICARE, SELFPAY ==
[2022-01-05 14:35] LABS: Bilirubin Negative (Negative); Blood Negative (Negative); Clarity Clear (Clear); Glucose Negative (Negative); Ketones Negative (Negative); Leukocyte Esterase Small (Negative); Nitrite Negative (Negative); Urobilinogen 0.2 EU/dL (Up TO 0.2); pH 6.5 (5-8)
[2022-01-05 14:44] LABS: Bacteria Moderate HPF (Negative); C & S Indicated? Yes; Casts Negative LPF (Negative); Crystals Negative HPF (Negative); Epithelial Cells Few HPF (Negative); Mucus Negative (Negative); RBC 0-2 HPF (0-2)
== END 2022-01-05 01:04 | disposition home or self-care (01) ==
LOC: LBN 01:03
PROVIDERS: Visit Provider Nurse Practitioner
DX: R39.89 Other symptoms and signs involving the genitourinary system (principal)
CPT/HCPCS: 81003; 81015; 87086

== ENCOUNTER → 2022-01-15 09:37 | Outpatient (CLI) | payer MEDICARE, SELFPAY ==
--- NOTE | 2022-01-15 14:15 | DI.CT_ITS ---
Exam(s) CT RENAL COLIC WO EXAM: CT RENAL COLIC WO CLINICAL HISTORY: +blood/+leuk, treated c ABT, waxing/waning pain...? kidney stone, N23. TECHNIQUE: Imaging Protocol: Axial computed tomography images with coronal and sagittal reformatted images were created and reviewed. COMPARISON: CT CHEST WITH CONTRAST from 01/01/2017 FINDINGS: ABDOMEN: Lung Bases: There is again seen a lipoma in the inferior aspect of the left breast and left anterior abdominal wall. It is incompletely imaged on this examination but present on the prior CT scan of e chest from 01/01/2017. Liver: Normal density. No measurable mass. Gallbladder and biliary tract: No radiodense calculus or biliary ductal dilation. Pancreas: Normal density, no abnormal calcifications or inflammatory process. Spleen: Normal. Kidneys: Normal size, contour and axis.No radiodense stones or obstructive uropathy. No masses seen. Adrenal glands: No mass is seen. Lymph nodes: Within normal limits. Abdominal Aorta: Abdominal portion non-dilated. Atherosclerosis. PELVIS: Bladder:Symmetric distention, no gross wall thickening. Bowel: No obstruction or bowel wall thickening. No evidence of appendicitis. Peritoneal cavity: No ascites, collection or mesenteric inflammatory response. No free air. Reproductive organs: Within normal limits. Bones: Within normal limits. Soft Tissues: Within normal limits. IMPRESSION: No evidence of nephrolithiasis or hydronephrosis. RADIATION DOSE DELIVERED: 799.17mGy.cm Total DLP DATA REPOSITORY: All CT scans at this facility are submitted to the National Radiology Data Registry (NRDR) Dose Index Registry (DIR) with the [employer] (A[employer]). RADIATION OPTIMIZATION: All CT scans at this facility use at least one of these dose optimization te chniques: automated exposure control; mA and/or kV adjustment per patient size (includes targeted exa ms where dose is matched to clinical indication); or iterative reconstruction.
== END ==
PROVIDERS: Visit Provider Nurse Practitioner Family
DX: R31.9 Hematuria, unspecified (principal); N23 Unspecified renal colic; R82.998 Other abnormal findings in urine
CPT/HCPCS: 74176

== ENCOUNTER 2022-06-07 09:45 | Outpatient (CLI) | payer MEDICARE, SELFPAY ==
[2022-06-07 12:29] LABS: HCT 40.3 % (36.0-46.0); HGB 12.9 g/dL (11.2-15.7); MCH 29.9 pg (27.0-33.0); MCV 93 fL (80-95); MPV 11.5 fL (8.0-11.0); Platelet Count 240 10^3/uL (130-400); RBC 4.32 10^6/uL (3.93-5.22); RDW 12.8 % (11.7-14.6); WBC 3.63 10^3/uL (4.4-10.8)
[2022-06-07 13:29] LABS: ALT 24 U/L (14-59); AST 15 U/L (15-37); Albumin 3.8 g/dL (3.4-5.0); Alkaline Phosphatase 59 U/L (46-116); Anion Gap 7.2 mmol/L (3-11); BUN 16 mg/dL (7-18); Bilirubin, Total 0.6 mg/dL (0.2-1.0); CO2 29.8 mmol/L (21.0-32.0); Calcium 9.3 mg/dL (8.5-10.1); Calculated LDL 134 mg/dL (<100); Chloride 100 mmol/L (98-107); Cholesterol 233 mg/dL (<200); Estimated GFR 60.98 (mL/min/1.73m2); Glucose 105 mg/dL (74-106); HDL Cholesterol 76 mg/dL (40-60); Magnesium 1.9 mg/dL (1.8-2.4); Potassium 4.2 mmol/L (3.5-5.1); Sodium 137 mmol/L (136-145); Total Protein 8.1 g/dL (6.4-8.2); Triglyceride 115 mg/dL (<150)
== END 2022-06-07 09:46 | disposition home or self-care (01) ==
LOC: LOS 09:45
PROVIDERS: Visit Provider Family Medicine
DX: D64.9 Anemia, unspecified (principal); E78.5 Hyperlipidemia, unspecified; R73.9 Hyperglycemia, unspecified; N39.0 Urinary tract infection, site not specified
CPT/HCPCS: 36415; 80053; 80061; 85027; 87077; 83036; 83735; 87086; 87186

== ENCOUNTER 2022-10-05 00:35 | Outpatient (CLI) | payer MEDICARE, SELFPAY ==
--- NOTE | 2022-10-05 07:30 | DI.MAMMO_ITS ---
Exam(s) US BREAST LT COMPLETE MG MAMMO DIAGNOSTIC BI EXAM: MAMMO DIAGNOSTIC BI AND COMPLETE LEFT BREAST ULTRASOUND CLINICAL HISTORY: erythema, induration, painless,ABNL BREAST FINDING,N64.59. TECHNIQUE: BOTH CC AND MLO BILAT mammographic images were obtained with 3D tomosynthesis technique a nd utilizing computer aided detection (CAD). Also performed complete ultrasound examination of the left breast including all 4 quadrants as well a s the retroareolar region and left axilla. COMPARISON: Prior mammograms were reviewed, the most recent being September 2019.. This 72 year old patient is sent because of a small lump and overlying area of redness on the skin in the left breast at approximately 10-11 o'clock. This is presently a about the size of a quarter. S he claims that has been decreasing in size. Denies nipple discharge. Denies recent trauma and anima l bite-scratch. Both nipples are inverted. She claims this has been for 3 years. FINDINGS: Diagnostic bilateral mammogram: There has been no significant change in the appearance and distribution of the fibroglandular tissue, including an intramammary lipoma in the left breast. No new obvious spiculated masses nor malignant-appearing microcalcification groups in either breast. There is no new architectural distortion nor new skin thickening-retraction Complete left breast ultrasound: There is no evidence of solid or significant cystic lesions in left breast. Normal appearing ducts a re noted in the retroareolar region. Scanning of the ipsilateral-left axilla is negative for efficacy adenopathy. IMPRESSION: No radiographic evidence of malignancy Negative complete left breast ultrasound Appropriate follow-up (as discussed by myself with the patient today) is referral to breast surgeon ( despite absence of imaging findings) given the clinical findings here of left breast lump and overlyi ng skin redness. The patient was informed of the findings and follow-up recommendations by myself prior to leaving the department today. BI-RADS Category 4 - Suspicious Abnormality: Referral to breast surgeon recommended for examination b y breast surgeon Breast Density - Category B - Scattered areas of fibroglandular density Breast density Category C or D implies that the patient has dense breast tissue. Dense breast tissue can make it harder to find cancer on a mammogram. Dense breast tissue is also associated with an incr eased risk of breast cancer. This information about the result of the mammogram report was provided to the patient to raise their awareness. Use this report when you speak with the patient about their risks for breast cancer, which includes their family history. At that time, you may recommend additional screening tests (Ultrasoun d or MRI) as these tests may add significant information. A negative radiographic report should not delay biopsy if a dominant or clinically suspicious mass is present. Up to ten percent of cancers are not identified on mammography. A negative report may reinforce clinical impression. Adenosis and dense breasts may obscure an underlying neoplasm. False positive reports average 6 to 10%. Patient will receive a letter notifying them of these results.
== END 2022-10-05 00:55 ==
PROVIDERS: PCP Nurse Practitioner Family; Visit Provider Nurse Practitioner Family
DX: N64.59 Other signs and symptoms in breast (principal); R92.8 Other abnormal and inconclusive findings on diagnostic imaging of breast
CPT/HCPCS: 76642; 77062; 77066; G0279

== ENCOUNTER 2022-10-15 16:05 | Outpatient (REF) | payer MEDICARE, SELFPAY ==
[2022-10-15 14:59] LABS: Absolute Basophil Count 0.04 10^3/uL (0.0-0.2); Absolute Eosinophil Count 0.15 10^3/uL (0.0-0.7); Absolute Lymphocyte Count 1.12 10^3/uL (1.2-3.4); Absolute Monocyte Count 0.34 10^3/uL (0.1-0.8); Absolute Neutrophil Count 2.23 10^3/uL (1.2-6.7); Eosinophils % 3.9; HCT 40.6 % (36.0-46.0); HGB 13.1 g/dL (11.2-15.7); Lymphocytes % 28.9; MCH 29.8 pg (27.0-33.0); MCHC 32.3 % (32.0-36.0); MCV 92 fL (80-95); MPV 12.1 fL (8.0-11.0); Monocytes % 8.8; Neutrophils % 57.4; Platelet Count 225 10^3/uL (130-400); RDW-SD 44.3 fL; WBC 3.88 10^3/uL (4.4-10.8)
[2022-10-15 15:01] LABS: ESR 15 mm/hr (0-30)
[2022-10-15 16:11] LABS: ALT 21 U/L (14-59); AST 16 U/L (15-37); Albumin 3.7 g/dL (3.4-5.0); Alkaline Phosphatase 58 U/L (46-116); BUN 19 mg/dL (7-18); Bilirubin, Total 0.5 mg/dL (0.2-1.0); Chloride 103 mmol/L (98-107); Estimated GFR 60.61 (mL/min/1.73m2); Glucose 108 mg/dL (74-106); Potassium 4.6 mmol/L (3.5-5.1); Sodium 140 mmol/L (136-145); Total Protein 7.5 g/dL (6.4-8.2)
[2022-10-15 16:15] LABS: C-Reactive Protein < 0.05 mg/dL (0.0-0.3)
[2022-10-16 09:59] LABS: Lyme Ab w Rflx to Lyme Confirm Negative (Negative)
[2022-10-18 15:57] LABS: Anaplasma phagocytophilum Negative (Negative); B. miyamotoi PCR Negative (Negative); Babesia divergens/MO-1 Negative (Negative); Babesia duncani Negative (Negative); Babesia microti Negative (Negative); Ehrlichia chaffeensis Negative (Negative); Ehrlichia ewingii/canis Negative (Negative); Ehrlichia muris eauclairensis Negative (Negative)
== END 2022-10-15 16:06 | disposition home or self-care (01) ==
LOC: NCHCN 16:05
PROVIDERS: PCP Nurse Practitioner Family; Visit Provider Nurse Practitioner Family
DX: R31.9 Hematuria, unspecified (principal); M25.50 Pain in unspecified joint; R53.81 Other malaise; R21 Rash and other nonspecific skin eruption; N39.0 Urinary tract infection, site not specified
CPT/HCPCS: 80053; 85652; 87077; 87798; 85025; 86140; 86618; 87086; 87186

== ENCOUNTER 2022-11-23 14:03 | Outpatient (CLI) | payer MEDICARE, SELFPAY ==
--- NOTE | 2022-11-23 14:00 | DI.RAD_ITS ---
Exam(s) XR KNEE RT 3V AP,LAT,BRAYAN EXAM: XR KNEE RT 3V AP,LAT,BRAYAN CLINICAL HISTORY: ski injury 2 days ago, RT KNEE PAIN, M25.561. TECHNIQUE: 2D digital imaging was performed of the right knee. Three views obtained. AP, lateral an d PA tunnel views were obtained. COMPARISON: There are no priors for comparison. FINDINGS: BONES: No acute fracture is present. No bony destructive lesion is seen. JOINTS: The knee is normally aligned. No joint effusion is seen. SOFT TISSUE: Normal. IMPRESSION: Unremarkable radiographs of the right knee. DATA REPOSITORY: RADIATION DOSE DELIVERED:
== END 2022-11-23 14:23 ==
LOC: DI 14:04
PROVIDERS: PCP Nurse Practitioner Family; Visit Provider Nurse Practitioner Family
DX: M25.561 Pain in right knee (principal)
CPT/HCPCS: 73562

== ENCOUNTER 2022-12-05 01:14 | Outpatient (CLI) | payer MEDICARE, SELFPAY ==
--- NOTE | 2022-12-05 07:30 | DI.US_ITS ---
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 COMPARISON: US ABDOMEN ULTRASOUND from 02/23/2010 CR ABD FLAT UPRIGHT PA CHEST from 12/05/[address] RENAL COLIC WO from 01/15/2022 CR,DX XRAY CHEST 1 VIEW from 10/24/2022 FINDINGS: LIVER: Normal size and echogenicity. No focal liver lesions are seen.. GALLBLADDER: No evidence of cholelithiasis. No evidence of wall thickening. No pericholecystic fluid identified. CAIN'S SIGN: Negative. BILIARY SYSTEM: No intrahepatic or extrahepatic biliary ductal dilation. KIDNEYS: Kidneys are symmetric in size. Mild focal areas of scarring. Inferior pole left kidney dif ficult to see due to overlying bowel gas. No evidence of renal calculi. No evidence of hydronephrosi s. No renal mass or cyst identified. PANCREAS: Normal where visualized. SPLEEN: Not enlarged. ABDOMINAL AORTA AND IVC: Visualized portions normal caliber. ASCITES: None seen. Left diaphragmatic motion visible during exam. Compared with a chest CT x-ray fron 2012, the elevati on of the left diaphragm is unchanged. IMPRESSION: No acute abnormality. No evidence of gallbladder abnormality. Stable appearance of elevated left hemidiaphragm. DATA REPOSITORY:
== END 2022-12-05 01:34 ==
LOC: DI 01:14
PROVIDERS: PCP Nurse Practitioner Family; Visit Provider Nurse Practitioner Family
DX: J98.6 Disorders of diaphragm (principal)
CPT/HCPCS: 76700

== ENCOUNTER 2023-03-08 01:08 | Outpatient (CLI) | payer MEDICARE, SELFPAY ==
--- NOTE | 2023-03-08 14:20 | DI.DEXA_ITS ---
Exam(s) XR DEXA BONE DENSITY W/WO HELENA EXAM: XR DEXA BONE DENSITY W/WO HELENA CLINICAL HISTORY: screening for osteoporosis, POSTMENOPAUSAL SCREENING, Z78.0 TECHNIQUE: [facility] densitometer analysis of left hip, lumbar spine and left forearm. Lat era survey image of the thoracic and lumbar spine. COMPARISON: 2008 FINDINGS: Lateral view of the thoracic and lumbar spine shows no evidence of compression fractures. Bone mineral density measurements of the lumbar spine correspond to a total T-score of -2.1, in the osteopenic range. This represents a 6 percent decrease when compared with 2008. Bone mineral density measurements of the left hip correspond to a total T-score of -1.3. The femora l neck T-score is -1.6, in the osteopenic range. This is a 6.2 percent decrease compared with 2008. The left forearm bone mineral density measurements correspond to a T-score of the distal 3rd of -1.2, in the osteopenic range. The forearm was not analyzed on the prior exam. . IMPRESSION: Osteopenia of the spine, hip and forearm.
== END 2023-03-08 01:28 ==
LOC: DI 01:08
PROVIDERS: PCP Nurse Practitioner Family; Visit Provider Nurse Practitioner Family
DX: Z78.0 Asymptomatic menopausal state (principal); Z13.820 Encounter for screening for osteoporosis; M85.89 Other specified disorders of bone density and structure, multiple sites
CPT/HCPCS: 77080

== ENCOUNTER 2023-03-21 08:54 | Outpatient (REF) | payer MEDICARE, SELFPAY ==
--- NOTE | 2023-03-21 08:15 | ORMUBX_PTH ---
PATIENT: Janny Cheung V LOC: [facility] U#:[id number] AGE/SX: 72/F ROOM: RE03/21/[address]: Johnna Lucio : 1950 BED: DIS: 03/21/2023 SPEC #: [id number] RECD: 03/21/23 17:14 STATUS: TERE REQ #: [id number] ROBERT: 03/21/23 08:[address]: Johnna Lucio DEPT: Surgical Specimen RECD BY: Erica Hawthorne ENTERED: 03/21/23 17:15 SP TYPE: ORMUBX OTHR DR: Carlos Fisher DNP Tissues: 1 - MUCOSA, NOS Procedures: GROSS AND MICRO LEVEL 4 Comments: [id number]
== END 2023-03-21 08:55 | disposition home or self-care (01) ==
LOC: LBN 08:54
PROVIDERS: PCP Nurse Practitioner Family; Visit Provider Registered Nurse Maternal Newborn
DX: D10.39 Benign neoplasm of other parts of mouth (principal); K13.79 Other lesions of oral mucosa
CPT/HCPCS: 88305

== ENCOUNTER 2024-01-20 05:27 | Outpatient (CLI) | payer MEDICARE, SELFPAY ==
[2024-01-20 14:30] LABS: Anion Gap 5.9 mmol/L (3-11); BUN 13 mg/dL (7-18); CO2 29.1 mmol/L (21.0-32.0); CREATININE 1.1 mg/dL (0.55-1.02); Calcium 9.1 mg/dL (8.5-10.1); Chloride 101 mmol/L (98-107); Estimated GFR 53.72 (mL/min/1.73m2); Glucose 105 mg/dL (74-106); Potassium 3.6 mmol/L (3.5-5.1); Sodium 136 mmol/L (136-145)
== END 2024-01-20 05:28 | disposition home or self-care (01) ==
LOC: LBO 05:27
PROVIDERS: PCP Nurse Practitioner Family; Visit Provider Nurse Practitioner Family
DX: I10 Essential (primary) hypertension (principal)
CPT/HCPCS: 36415; 80048

== ENCOUNTER 2024-01-21 13:05 | Outpatient (REF) | payer MEDICARE, SELFPAY | END 2024-01-21 13:06 | disposition home or self-care (01) | LOC: LBN 13:05 | PROVIDERS: PCP Nurse Practitioner Family; Visit Provider Nurse Practitioner Family | DX: R35.0 Frequency of micturition (principal); B96.89 Other specified bacterial agents as the cause of diseases classified elsewhere | CPT/HCPCS: 87086 ==

== ENCOUNTER 2024-05-21 10:21 | Outpatient (REF) | payer MEDICARE, SELFPAY ==
[2024-05-21 13:06] LABS: Bilirubin Negative (Negative); Blood Trace-intact (Negative); Clarity Sl Cloudy (Clear); Glucose Negative (Negative); Ketones Negative (Negative); Leukocyte Esterase Moderate (Negative); Nitrite Negative (Negative); Urobilinogen 0.2 mg/dL (Up to 0.2)
[2024-05-21 13:22] LABS: Epithelial Cells Moderate HPF (Negative)
[2024-05-21 13:23] LABS: Bacteria Few HPF (Negative); C & S Indicated? No/Sq. Contamination; Casts Negative LPF (Negative); Crystals Negative HPF (Negative); Mucus Trace (Negative); Other Cells Few Transitional (Negative)
== END 2024-05-21 10:22 | disposition home or self-care (01) ==
LOC: LBN 10:21
PROVIDERS: PCP Nurse Practitioner Family; Visit Provider Nurse Practitioner Family
DX: R39.9 Unspecified symptoms and signs involving the genitourinary system (principal)
CPT/HCPCS: 81003; 81015

== ENCOUNTER 2024-06-08 11:32 | Outpatient (REF) | payer MEDICARE, SELFPAY | END 2024-06-08 11:33 | disposition home or self-care (01) | LOC: LBN 11:32 | PROVIDERS: PCP Nurse Practitioner Family; Visit Provider Physician Assistant | DX: N39.0 Urinary tract infection, site not specified (principal); R82.89 Other abnormal findings on cytological and histological examination of urine | CPT/HCPCS: 87086 ==

== ENCOUNTER 2024-07-19 10:18 | Emergency (ER) | payer MEDICARE, SELFPAY ==
[2024-07-19] VITALS (27 sets, daily range): BP systolic 112–152; BP diastolic 61–99; PULSE 79–91; RESP 10–24; TEMP 37.1; O2SAT 93–98
--- NOTE | 2024-07-19 10:15 | RT.EKG_ITS ---
APPROVED REPORT Exam: Resting ECG Reason for Exam: chest pain Patient Location: E HR:83 bpm ECG Measurements Heart Rate 83 AXIS AL 172 P -20 QRSd 96 QRS -48 QT 363 T 35 QTc 427 Conclusion Sinus rhythm...normal P axis, V-rate 60- 99 LAD, consider left anterior fascicular block...axis(240,-40), S>R II III aVF
--- NOTE | 2024-07-19 10:41 | ED.GENADUL_ITS ---
Discharge Plan Disposition Patient Disposition: Home Condition: Stable Discharge Details Clinical Impression: Chest pain, Bronchitis Primary Care Provider: Carlos Nelson ED Provider: Andi Thomas Home Meds and New Rx's Prescriptions: New doxycycline hyclate 100 mg tablet 100 mg PO BID Qty: 14 0RF Continued amlodipine 5 mg tablet 5 mg PO DAILY Qty: 90 4RF cholecalciferol (vitamin D3) [Vitamin D3] 2,000 UNIT capsule 2,000 unit PO DAILY omeprazole 20 mg capsule,delayed release(DR/EC) See Rx Instructions .ROUTE .COMPLEX Qty: 90 3RF Dose Instruction: TAKE 1 CAPSULE BY MOUTH DAILY Rx Instructions: TAKE 1 CAPSULE BY MOUTH DAILY losartan 100 mg tablet 100 mg PO DAILY Qty: 90 4RF Discharge Instructions Additional Instructions: Your imaging and lab work did not show any significant findings. Follow-up with your primary care provider so she may not getting better this week If you feel more ill or have severe worsening pain return to the emergency department for reevaluation HPI General Mode of arrival: ambulatory . Date/Time Provider Initiated Documentation: 07/19/24 10:21 . Limitations to Documentation: no limitations . Information obtained by: patient . History of Present Illness 73 year old F presents to the emergency department with the chief complaint of chest pain, described as moderate, Quality is described as sharp, and is localized to the chest. Patient reports no radiation. Patient started experiencing this day(s) (1) and it has been constant. No relieving factors improve symptom(s), Other factors that worsen symptoms (deep breaths) . Patient did receive the following treatments prior to arrival, none Related Data Home Medications ?Medication ?Instructions ?Recorded ?Confirmed cholecalciferol (vitamin D3) 50 2,000 unit PO DAILY 01/19/13 07/19/24 mcg (2,000 unit) capsule (Vitamin D3) omeprazole 20 mg capsule,delayed See Rx Instructions .Route 03/09/24 07/19/24 release .COMPLEX #90 caps losartan 100 mg tablet 100 mg PO DAILY #90 tabs 04/27/24 07/19/24 amlodipine 5 mg tablet 5 mg PO DAILY #90 tabs 05/06/24 07/19/24 doxycycline hyclate 100 mg tablet 100 mg PO BID #14 tabs 07/19/24 Previous Rx's ?Medication ?Instructions ?Recorded omeprazole 20 mg capsule,delayed See Rx Instructions .Route 03/09/24 release .COMPLEX #90 caps losartan 100 mg tablet 100 mg PO DAILY #90 tabs 04/27/24 amlodipine 5 mg tablet 5 mg PO DAILY #90 tabs 05/06/24 doxycycline hyclate 100 mg tablet 100 mg PO BID #14 tabs 07/19/24 Allergies Allergy/AdvReac Type Severity Reaction Status Date / Time lisinopril AdvReac Intermediate COUGH Verified 06/08/24 11:00 General Stated Complaint: Chest Pain OK: 2 Review of Systems All systems reviewed & are unremarkable except as noted in HPI and below Constitutional Constitutional: Reports chills, Denies fever(s) and Denies weakness Cardiovascular Cardiovascular: Reports chest pain and Denies dyspnea Respiratory Respiratory: Reports cough and Denies dyspnea Gastrointestinal Gastrointestinal: Denies abdominal pain, Denies nausea and Denies vomiting Musculoskeletal Musculoskeletal: Denies joint swelling Neurologic Neurologic: Denies weakness Exam Const General: no acute distress Orientation: alert HENMT Head: normal to inspection Ears: external ears normal General nose exam: external nose normal Mouth: moist mucous membranes Eyes General: appearance normal, both eyes and all related structures Neck Neck: normal visual inspection Resp Effort & Inspection: normal respiratory effort and able to speak in complete sentences Auscultation: clear to auscultation bilaterally Cardio Jugular venous pressure: no JVD Rate: regular rate Heart Sounds: no murmurs GI Palpation: soft and nontender Skin General skin exam: no rashes or lesions noted Neuro General: patient alert and patient oriented x3 Extrem General: normal to inspection Psych Mental Status: mental status grossly normal Course Vital Signs Vital signs: Vital Signs Respiratory Rate 21 07/19/24 10:23 Temperature 37.1 C 07/19/24 10:32 Temperature Source Oral 07/19/24 10:32 Pulse 85 07/19/24 10:32 Pulse 87 07/19/24 10:31 Respiratory Rate 24 07/19/24 10:32 Respiratory Effort Normal, Non-Labored 07/19/24 10:37 Blood Pressure 130/95 H 07/19/24 10:32 Blood Pressure Mean 104 07/19/24 10:31 Blood Pressure Position Sitting 07/19/24 10:32 Pulse Oximetry 94 07/19/24 10:32 Oxygen Delivery Method Room Air 07/19/24 10:32 Oxygen Flow Rate 0 07/19/24 10:32 Pain Level 6 07/19/24 10:32 Comment no pain meds today 07/19/24 10:32 Medical Decision Making 73-year-old female with a history of GERD, hypertension, prior history of pleurisy per patient comes in with pleuritic chest pain along with chills and bodyaches since yesterday. She denies any high fevers, difficulty breathing, leg swelling or calf tenderness. No abdominal pain or vomiting. She is to take deep breath makes the pain increase in the pain is a sharp anterior chest pain. She is well-appearing on exam speaking full sentences. She has clear lung sounds, no visible or palpable deformity of the chest, no abdominal tenderness, no leg swelling or calf tenderness. No JVD. Given her body aches and chills suspect she could have a respiratory infection, will check a CBC, CMP, troponins, given the pain is pleuritic obtain CTA of the chest to evaluate for PE. She has no tearing back pain and equal peripheral pulses so doubt dissection. Patient CTA shows no significant findings, does have atelectasis. Negative troponins. proBNP is elevated but she is clinically not in CHF. She is stable, she does note she still has intermittent chills and cough. Though there is no pneumonia on the x-ray I will cover her for possible rhinitis versus early pneumonia with doxycycline. She is stable for discharge and will follow-up with her PCP, return precautions given Differential Diagnosis Differential Diagnosis: Pleurisy, PE, NSTEMI Medical Records Medical records reviewed: Yes I reviewed the patient's medical records. Lab Data Lab results reviewed: Yes I reviewed the patient's lab results. 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-on U/[place] [facility] [place] Hypertension (Chronic) History of gastroesophageal reflux (GERD) (Chronic) Intermittent palpitations (Chronic) Annual physical exam (Acute) Weight gain (Acute) Anxiety as acute reaction to exceptional stress (Acute) Tubulovillous adenoma (Acute ~06/2021) Tinnitus (Acute) Bilateral sensorineural hearing loss (Acute) Malaise (Acute) Arthralgia (Acute) Elevated hemidiaphragm (Acute) Medical History Right knee pain Rash Abnormal breast finding left erythema, induration, painless Mouth lesion Kidney pain Anemia due to blood loss, acute Post-polypectomy bleeding Abnormal colonoscopy Acute GI bleeding Colon cancer screening UTI (urinary tract infection) Dysuria Foot pain, right Foot pain, left Tubulovillous adenoma polyp of colon Migraine trigeminal neuralgia Surgical History History of colonoscopy (~06/2021) Family History Mother Essential hypertension Heart disease Father , 51 Hodgkin's disease Sister Essential hypertension Maternal Grandfather , 73 Heart disease Stroke Paternal Grandfather , 76 Personal history of malignant neoplasm Prostate Maternal Grandmother , 60 Heart disease Brother Essential hypertension Sister No problems noted. Sister No problems noted. Son Depression Daughter No problems noted. Social History Smoking/Tobacco Use Status: Never Smoking risk assessment performed?: Yes Alcohol Intake: current Alcohol Intake frequency: 0-2 drinks per day Alcohol type: wine and hard liquor Drug use: Never Substance use type: does not use Caregiver/Support person: No Household members: spouse Housing: house Communication Needs: None Pets and animals: Yes Pets and animals: cat(s) Sexually active: No Do you think of yourself as: straight/heterosexual Current gender identity: female What is your relationship status?: How often do you talk on the phone with friends or family?: decline to answer How often do you get together with friends or relatives?: decline to answer How often do you attend jew or baptist services?: decline to answer Do you belong to any clubs or organized social groups?: yes Panel score (0-1 are the most socially isolated patients): 2 What type of physical activity do you participate in: other Duration: 60-90 minutes/day Frequency: 3-4 times per week Karley/Hindu: Worship Special karley needs: No Do you feel safe at home: Yes Do you feel safe in your relationship?: Yes Additional Social history: of 53yrs at side
[2024-07-19 10:47] LABS: BE (Venous) 3 mmol/L (-2-3); HCO3 (Venous) 28 mmol/L (23-28); O2 Sat (Venous) 42 %; TCO2 (Venous) 26 mmol/L (24-29); pCO2 (Venous) 44 mmHg (41-51); pH (Venous) 7.42 (7.31-7.41); pO2 (Venous) 23 mmHg
[2024-07-19 10:51] LABS: Abs Immature Grans 0.04 10^3/uL (0.0-0.06); Absolute Eosinophil Count 0.06 10^3/uL (0.0-0.7); Absolute Lymphocyte Count 0.82 10^3/uL (1.2-3.4); Absolute Monocyte Count 0.83 10^3/uL (0.1-0.8); Basophils % 0.3 %; Eosinophils % 0.5 %; HCT 37.1 % (36.0-46.0); HGB 12.2 g/dL (11.2-15.7); Immature Grans % 0.3 %; Lymphocytes % 7.1 %; MCH 29.8 pg (27.0-33.0); MCHC 32.9 % (32.0-36.0); MCV 91 fL (80-95); MPV 10.4 fL (8.0-11.0); Monocytes % 7.2 %; Neutrophils % 84.6 %; Platelet Count 280 10^3/uL (130-400); RBC 4.09 10^6/uL (3.93-5.22); RDW 12.5 % (11.7-14.6); RDW-SD 41.1 fL; WBC 11.53 10^3/uL (4.4-10.8)
[2024-07-19 11:00] LABS: Absolute Basophil Count 0.03 10^3/uL (0.0-0.2); Absolute Neutrophil Count 9.75 10^3/uL (1.2-6.7)
[2024-07-19 11:01] LABS: INR 1.1 (0.9-1.1); PTT Activated 29.4 sec (23.6-32.8); Prothrombin Time 10.6 sec (9.1-11.1)
--- NOTE | 2024-07-19 11:10 | DI.CT_ITS ---
Exam(s) CT CHEST PE CTA EXAM: CT CHEST PE CTA CLINICAL HISTORY: pleuritic chest pain. TECHNIQUE: Imaging Protocol: Axial CT angiography was performed with multi-slice acquisition and mu lti-planar reconstructions as well as axial, coronal and sagittal MIP reconstructions. Computer aided detection (CAD) was utilized. CONTRAST MATERIAL: Intravenous: Omnipaque 350 Contrast volume:64 ml COMPARISON: CT CHEST WITH CONTRAST from 01/01/2017 MG MG MAMMO DIAGNOSTIC BI from 10/05/2022 FINDINGS: Pulmonary Arteries: No evidence of filling defect to suggest pulmonary emboli. Mediastinum and Izabela: No dominant adenopathy or fluid collection. Pulmonary parenchyma: Somewhat limited evaluation due to expiratory changes. Basilar atelectasis. A zygos lobe, normal variant. No consolidation or dominant measurable mass. Pleura: No effusion or pneumothorax. Heart: The heart is mildly dilated. No coronary artery calcifications are seen. Aorta: Ascending aorta measures 3.8 cm. No dissection. Upper abdomen: No acute findings. Elevation of the left diaphragm again noted. Bones: Unremarkable for age. Tubes, Catheters, and Lines: None Soft tissues: The previously noted left breast lipoma has been resected. Mild left breast scarring. IMPRESSION: No evidence of pulmonary embolism. Bilateral lower lobe atelectasis. RADIATION DOSE DELIVERED: Total DLP DATA REPOSITORY: All CT scans at this facility are submitted to the National Radiology Data Registry (NRDR) Dose Index Registry (DIR) with the [employer] (ACR). RADIATION OPTIMIZATION: All CT scans at this facility use at least one of these dose optimization te chniques: automated exposure control; mA and/or kV adjustment per patient size (includes targeted exa ms where dose is matched to clinical indication); or iterative reconstruction.
[2024-07-19 11:14] LABS: ALT 21 U/L (14-59); AST 10 U/L (15-37); Albumin 3.3 g/dL (3.4-5.0); Alkaline Phosphatase 75 U/L (46-116); Anion Gap 8.4 mmol/L (3-11); BUN 15 mg/dL (7-18); Bilirubin, Total 0.82 mg/dL (0.2-1.0); CO2 28.6 mmol/L (21.0-32.0); CREATININE 1.1 mg/dL (0.55-1.02); Calcium 8.7 mg/dL (8.5-10.1); Chloride 102 mmol/L (98-107); Estimated GFR 53.72 (mL/min/1.73m2); Glucose 122 mg/dL (74-106); Lipase 33 U/L (16-77); Magnesium 1.8 mg/dL (1.8-2.4); NT-proBNP 1095 pg/mL (<300); Potassium 3.7 mmol/L (3.5-5.1); Sodium 139 mmol/L (136-145); TSH (W/Ref FT4) 2.42 uIU/mL (0.36-3.74); Total Protein 7.5 g/dL (6.4-8.2); Troponin I 49 ng/L (<or=51)
[2024-07-19 11:27] LABS: Procalcitonin < 0.10 ng/mL
[2024-07-19 11:31] LABS: COVID-19 PCR Negative (Negative); Influenza A PCR Negative (Negative); Influenza B PCR Negative (Negative); RSV PCR Negative (Negative)
[2024-07-19 11:33] LABS: Source Nasopharynx
[2024-07-19] MEDS: Omnipaque 350 MG/ML 100 ML BTL IJ (11:36)
[2024-07-19] MEDS: Normal Saline - Diluent 50 ML VIAL IJ (11:37)
[2024-07-19 12:16] LABS: Troponin I 41 ng/L (<or=51)
--- NOTE | 2024-07-19 12:20 | DI.VRAD_ITS ---
PROCEDURE INFORMATION: Exam: CTA Chest With Contrast Exam date and time: 07/19/2024 11:31 AM Age: 73 years old Clinical indication: Pain; Other: Pleuritic cp TECHNIQUE: Imaging protocol: Computed tomographic angiography of the chest with contrast. Exam focused on the arteries. 3D rendering (Not supervised by radiologist): MIP and/or 3D reconstructed images were created by the technologist. Radiation optimization: All CT scans at this facility use at least one of these dose optimization techniques: automated exposure control; mA and/or kV adjustment per patient size (includes targeted exams where dose is matched to clinical indication); or iterative reconstruction. Contrast material: OMNIPAQUE 350; Contrast volume: 64 ml; Contrast route: INTRAVENOUS (IV); COMPARISON: CR XRAY CHEST 1 VIEW 10/24/2022 2:03 AM FINDINGS: Pulmonary arteries: Normal. No pulmonary emboli. Aorta: Thoracic aorta: Ascending 3.8 cm. Descending 2.7 cm. Lungs: Left lower lobe atelectasis. Right lower lobe atelectasis. Pleural spaces: Unremarkable. No pneumothorax. No pleural effusion. Heart: Unremarkable. No cardiomegaly. No pericardial effusion. Lymph nodes: Unremarkable. No enlarged lymph nodes. Bones/joints: Unremarkable. No acute fracture. Soft tissues: Unremarkable. IMPRESSION: 1. No acute findings. 2. Bilateral lower lobe atelectasis. Dictated and Authenticated by: Cristopher Sheppard MD. Ordering:OBED Escamilla MD
[2024-07-19] MEDS: Doxycycline Hyclate 100 MG CAP PO (12:48)
[2024-07-19 13:01] LABS: Bilirubin Negative (Negative); Blood Trace-intact (Negative); Clarity Clear (Clear); Glucose Negative (Negative); Ketones Negative (Negative); Leukocyte Esterase Small (Negative); Nitrite Negative (Negative); Specific Gravity 1.015 (1.005-1.025); pH 7.5 (5-8)
[2024-07-19 13:10] LABS: Epithelial Cells Rare HPF (Negative); RBC 0-2 HPF (0-2)
[2024-07-19 13:11] LABS: Bacteria Rare HPF (Negative); C & S Indicated? Yes; Casts Negative LPF (Negative); Crystals Negative HPF (Negative); Mucus Negative (Negative); Other Cells Rare Renal (Negative)
--- NOTE | 2024-07-21 08:27 | NUR.NOTE ---
Access chart to see if antibiotics prescribed on discharge for urine culture. Nursing Note:
== END 2024-07-19 12:51 | disposition home or self-care (01) ==
PROVIDERS: Emergency Provider Emergency Medicine; PCP Nurse Practitioner Family
DX: R07.9 Chest pain, unspecified (principal); J40 Bronchitis, not specified as acute or chronic; I10 Essential (primary) hypertension
CPT/HCPCS: 36415; 71275; 80053; 82805; 83690; 84145; 87637; 93005; 99285; 81003; 81015; 83735; 83880; 84443; 84484; 85025; 85610; 85730; 87086; 93010; 99284; J3490

== ENCOUNTER 2024-08-12 14:23 | Outpatient (REF) | payer MEDICARE, SELFPAY | END 2024-08-12 14:24 | disposition home or self-care (01) | LOC: LBN 14:23 | PROVIDERS: PCP Nurse Practitioner Family; Visit Provider Nurse Practitioner Family | DX: A49.9 Bacterial infection, unspecified (principal); N39.0 Urinary tract infection, site not specified; R30.0 Dysuria | CPT/HCPCS: 87086 ==

== ENCOUNTER → 2025-01-20 10:40 | Outpatient (BNVA) | payer MEDICARE, SELFPAY | PROVIDERS: PCP Nurse Practitioner Family; Referring Provider Nurse Practitioner Family; Visit Provider Nurse Practitioner Gerontology | DX: N30.10 Interstitial cystitis (chronic) without hematuria (principal); R33.9 Retention of urine, unspecified | CPT/HCPCS: 99215; 81003; 51798 ==

== ENCOUNTER 2025-02-08 17:40 | Outpatient (REF) | payer MEDICARE, SELFPAY ==
--- NOTE | 2025-02-08 11:10 | SKI_PTH ---
PATIENT: Janny Cheung V LOC: [facility] U#:[id number] AGE/SX: 74/F ROOM: RE02/08/[address]: Carlos Fisher DNP : 1950 BED: DIS: 02/08/2025 SPEC #: [id number] RECD: 02/08/25 17:55 STATUS: TERE REQ #: [id number] ROBERT: 02/08/25 11:[address]: Carlos Nelson DEPT: Surgical Specimen RECD BY: Erica Hawthorne Tissues: 1 - SKIN BIOPSY(SHAVE/PUNCH) Procedures: SKIN LEVEL 4 Comments: [id number]
== END 2025-02-08 17:41 | disposition home or self-care (01) ==
LOC: LBN 17:40
PROVIDERS: PCP Nurse Practitioner Family; Visit Provider Nurse Practitioner Family
DX: L82.1 Other seborrheic keratosis (principal)
CPT/HCPCS: 88305

== ENCOUNTER 2025-02-11 01:09 | Outpatient (CLI) | payer MEDICARE, SELFPAY ==
--- NOTE | 2025-02-11 09:32 | DI.RAD_ITS ---
Exam(s) XR WRIST LT COMPLETE EXAM: XR WRIST LT COMPLETE CLINICAL HISTORY: mass ulnar aspect, joint of lt wrist, M25.832. TECHNIQUE: 2D digital imaging was performed of the left wrist. Three images were obtained. PA, oblique and lateral views were obtained. COMPARISON: No exams were available for comparison FINDINGS: BONES: No acute fracture is present. No bony destructive lesion is seen. JOINTS: The carpal bones are normally aligned. Degenerative changes are seen in the wrist particularly at the 1st carpometacarpal joint. SOFT TISSUE: There are calcifications seen in the soft tissues anterior to the distal ulna. They appear to be separate from the adjacent bone. There is a calcification at the ulnar aspect of the base of the 5th metacarpal. IMPRESSION: Soft tissue calcifications in the medial wrist. The largest collection are seen adjacent to the distal ulna. They appear independent of the underline/adjacent bones. A CT scan and/or MRI should be considered for further characterization. DATA REPOSITORY: RADIATION DOSE DELIVERED:
--- NOTE | 2025-02-11 09:35 | DI.RAD_ITS ---
Exam(s) XR ELBOW LT COMPLETE EXAM: XR ELBOW LT COMPLETE CLINICAL HISTORY: mass ulnar aspect, joint of left elbow, M25.822. TECHNIQUE: 2D digital imaging was performed. COMPARISON: No exams were available for comparison FINDINGS: 3 views No evidence of fracture nor joint effusion. No swelling of the olecranon bursa. There is some asymmetric skin indrawing over the medial aspect of the elbow possible significance. There is no radiopaque foreign body and no gas in the soft tissues at this level nor elsewhere in the elbow regions. Is still epicondyles appear unremarkable. Radial head and neck appear unremarkable. There are no loose intra-articular bodies. IMPRESSION: No significant osseous findings in the left elbow. Appears to be some skin indrawing over the medial aspect of the elbow. DATA REPOSITORY: RADIATION DOSE DELIVERED:
== END 2025-02-11 01:29 ==
LOC: DI 01:09
PROVIDERS: PCP Nurse Practitioner Family; Visit Provider Nurse Practitioner Family
DX: R33.9 Retention of urine, unspecified (principal); M25.832 Other specified joint disorders, left wrist
CPT/HCPCS: 73080; 73110

== ENCOUNTER 2025-02-11 01:09 | Outpatient (CLI) | payer MEDICARE, SELFPAY ==
--- NOTE | 2025-02-11 10:01 | DI.US_ITS ---
Exam(s) US RENAL EXAM: US RENAL CLINICAL HISTORY: elevated PVR, Incomplete emptying of bladder, R33.9-retention of urine TECHNIQUE: Ultrasound of both kidneys performed using standard protocol. COMPARISON: CT CT RENAL COLIC WO from 01/15/2022 US US ABDOMEN from 12/05/[address] CHEST PE CTA from 07/19/2024 FINDINGS: RIGHT KIDNEY: Measures 10.7 cm in length. No cysts evident. Normal cortical thickness and corticomedullary differentiation .No solid masses No intrarenal calculi nor hydronephrosis. LEFT KIDNEY: Measures 1.2 cm in length. No cysts evident. Normal cortical thickness and corticomedullary differentiaion. No obvious solids masses. No intrarenal calculi nor hydonephrosis. Most inferior aspect the left kidney is difficult to visualize because of adjacent bowel gas which most probably from the splenic flexure of the colon. URINARY BLADDER: Prevoid volume is 220 cc Postvoid volume is 3 cc No evidence of obvious bladder mass nor diverticuli. Ureterovesical jets: Both identified and appear symmetrical IMPRESSION: 1. No significant ultrasound findings in the kidneys. 2. No obvious abnormalities in the urinary bladder. DATA REPOSITORY:
== END 2025-02-11 01:29 ==
LOC: DI 01:09
PROVIDERS: PCP Nurse Practitioner Family; Visit Provider Nurse Practitioner Gerontology
DX: R33.9 Retention of urine, unspecified (principal)
CPT/HCPCS: 76770; 73080; 73110

== ENCOUNTER 2025-02-23 02:05 | Outpatient (CLI) | payer MEDICARE, SELFPAY ==
--- NOTE | 2025-02-23 06:45 | DI.MAMMO_ITS ---
Exam(s) MAMMO SCREENING EXAM: MAMMO SCREENING CLINICAL HISTORY: screening,z12.39 TECHNIQUE: Mammograms were interpreted according to the usual protocol including computer analysis with CAD system, tomosynthesis and C-view imaging. COMPARISON: 2015 through 2022 FINDINGS: The breasts are composed of scattered fibroglandular densities, Breast Density category B. No suspicious masses or suspicious microcalcifications are seen. There are again noted to be scattered benign calcifications. The patient has undergone resection of the previously noted llipoma in the left breast. No skin thickening or abnormal axillary lymph nodes are seen. There has been no significant change from prior exams. IMPRESSION: BI-RADS Category 2 - Benign Findings Yearly screening mammography is recommended. Breast Density - Category B - There are scattered areas of fibroglandular density. Breast density Category C or D implies that the patient has dense breast tissue. Dense breast tissue can make it harder to find cancer on a mammogram. Dense breast tissue is also associated with an increased risk of breast cancer. This information about the result of the mammogram report was provided to the patient to raise their awareness. Use this report when you speak with the patient about their risks for breast cancer, which includes their family history. At that time, you may recommend additional screening tests (Ultrasound or MRI) as these tests may add significant information. A negative radiographic report should not delay biopsy if a dominant or clinically suspicious mass is present. Up to ten percent of cancers are not identified on mammography. A negative report may reinforce clinical impression. Adenosis and dense breasts may obscure an underlying neoplasm. False positive reports average 6 to 10%. Patient will receive a letter notifying them of these results.
== END 2025-02-23 02:25 ==
LOC: DI 02:06
PROVIDERS: PCP Nurse Practitioner Family; Visit Provider Nurse Practitioner Family
DX: Z12.31 Encounter for screening mammogram for malignant neoplasm of breast (principal); M25.822 Other specified joint disorders, left elbow; R92.323 Mammographic fibroglandular density, bilateral breasts; D24.2 Benign neoplasm of left breast
CPT/HCPCS: 77063; 77067

== ENCOUNTER 2025-03-09 01:37 | Outpatient (CLI) | payer MEDICARE, SELFPAY ==
--- NOTE | 2025-03-09 08:00 | DI.MRI_ITS ---
Exam(s) MR UPPER JOINT LT WO EXAM: MR UPPER JOINT LT WO CLINICAL HISTORY: per xrays, mass of joint of l wrist,M25.832. TECHNIQUE: Multiplanar multisequence MRI was performed. COMPARISON: Plain films 11 February 2025 FINDINGS: BONES: There is no fracture or contusion pattern. There are cysts noted in multiple bones, lunate, distal pole of the scaphoid, and trapezium. JOINTS: There is a small joint effusion seen mainly at the ulnar aspect of the wrist. TENDONS: Flexors: Unremarkable. Extensors: Unremarkable. MUSCLES: Unremarkable. MEDIAN NERVE: Unremarkable on this noncontrast examination. SOFT TISSUES: There are multiple large calcifications seen ventral to the distal ulna are surrounded by fluid and are likely within a synovial cyst. LIGAMENTS: Unremarkable. TRIANGULAR FIBROCARTILAGE: Unremarkable. IMPRESSION: Multiple calcifications are noted within a fluid collection at the ulnar aspect of the wrist, likely within a synovial cyst. Cystic areas within several bones may represent degenerative subchondral cysts versus inflammatory arthritis, although there no periarticular erosions. No suspicious masses. DATA REPOSITORY:
--- NOTE | 2025-03-09 08:00 | DI.MRI_ITS ---
Exam(s) MR UPPER JOINT LT WO EXAM: MR UPPER JOINT LT WO CLINICAL HISTORY: f/u xrays, mass of joint of elbow M25.822. TECHNIQUE: Multiplanar multisequence MRI was performed. COMPARISON: Plain films 11 February 2025 FINDINGS: Elbow joint: No joint effusion. No loose bodies. Bones: There is no fracture or contusion pattern. Biceps tendon: Intact. No tendinosis. Brachialis tendon: Intact. No tendinosis. Common flexor tendons: Intact. No tendinosis. Common extensor tendons: Intact. No tendinosis. Triceps tendon: Intact. No tendinosis. Soft tissues: Unremarkable. No evidence of mass or fluid collection. No abnormal signal within the musculature. IMPRESSION: Normal MRI examination of the elbow. DATA REPOSITORY:
== END 2025-03-09 01:57 ==
LOC: DI 01:37
PROVIDERS: PCP Nurse Practitioner Family; Visit Provider Nurse Practitioner Family
DX: M25.822 Other specified joint disorders, left elbow (principal); M25.832 Other specified joint disorders, left wrist
CPT/HCPCS: 73221

== ENCOUNTER 2025-03-12 01:08 | Outpatient (CLI) | payer MEDICARE, SELFPAY ==
[2025-03-12 09:04] LABS: ALT 23 U/L (14-59); AST 11 U/L (15-37); Albumin 3.7 g/dL (3.4-5.0); Alkaline Phosphatase 84 U/L (46-116); Anion Gap 8.0 mmol/L (3-11); BUN 19 mg/dL (7-18); Bilirubin, Total 0.5 mg/dL (0.2-1.0); CO2 30.0 mmol/L (21.0-32.0); Calcium 9.1 mg/dL (8.5-10.1); Calculated LDL 142 mg/dL (<100); Chloride 102 mmol/L (98-107); Cholesterol 237 mg/dL (<200); Estimated GFR 59.86 (mL/min/1.73m2); Glucose 113 mg/dL (74-106); HDL Cholesterol 78 mg/dL (>or=50); Potassium 3.8 mmol/L (3.5-5.1); Sodium 140 mmol/L (136-145); Total Protein 8.2 g/dL (6.4-8.2); Triglyceride 85 mg/dL (<150)
== END 2025-03-12 01:09 | disposition home or self-care (01) ==
PROVIDERS: PCP Nurse Practitioner Family; Visit Provider Nurse Practitioner Family
DX: E78.5 Hyperlipidemia, unspecified (principal); M25.822 Other specified joint disorders, left elbow
CPT/HCPCS: 36415; 80053; 80061

== ENCOUNTER → 2025-04-28 09:19 | Outpatient (BNVA) | payer MEDICARE, SELFPAY | PROVIDERS: PCP Nurse Practitioner Family; Referring Provider Nurse Practitioner Family; Visit Provider Nurse Practitioner Gerontology | DX: N30.10 Interstitial cystitis (chronic) without hematuria (principal); R33.9 Retention of urine, unspecified | CPT/HCPCS: 99213 ==

== ENCOUNTER → 2025-05-06 09:21 | Outpatient (BNVA) | payer MEDICARE, SELFPAY | PROVIDERS: PCP Nurse Practitioner Family; Referring Provider Nurse Practitioner Family; Visit Provider Student in an Organized Health Care Education/Training Program | DX: M67.432 Ganglion, left wrist (principal); M77.02 Medial epicondylitis, left elbow | CPT/HCPCS: 99214 ==

== ENCOUNTER 2025-06-29 07:53 | Day surgery (SDC) | payer MEDICARE, SELFPAY ==
--- NOTE | 2025-06-29 07:10 | PDOC.DSDIS_ITS ---
Date of service: 06/29/25 Discharge Plan Disposition Patient Disposition: Home Condition: Good Discharge Details Reason For Visit: Left wrist cyst Attending Provider: Lionel Tanner Primary Care Provider: Carlos Nelson Home Meds and New Rx's Prescriptions: New hydrocodone-acetaminophen 5-325 mg tablet 1 tab PO Q6H PRN (Reason: severe pain) Qty: 6 0RF Rx Instructions: Take one tablet up to every 6 hours as needed for severe postoperative pain acetaminophen 500 mg tablet 500 mg PO Q6H PRN (Reason: pain) Qty: 60 2RF ibuprofen 600 mg tablet 600 mg PO TID PRN (Reason: pain) Qty: 60 0RF Continued cholecalciferol (vitamin D3) [Vitamin D3] 2,000 UNIT capsule 2,000 unit PO DAILY amlodipine 5 mg tablet 5 mg PO DAILY Qty: 90 4RF losartan 100 mg tablet 100 mg PO DAILY Qty: 90 4RF omeprazole 20 mg capsule,delayed release(DR/EC) See Rx Instructions .ROUTE .COMPLEX Qty: 90 3RF Dose Instruction: TAKE 1 CAPSULE BY MOUTH DAILY Rx Instructions: TAKE 1 CAPSULE BY MOUTH DAILY Discharge Instructions Additional Instructions: Cyst Excision Discharge Instructions Activity: You should keep the hand elevated as much as possible for the first few days. You may use the other fingers as tolerated but avoid trying to do too much too soon. You may perform light activities with the splint in place. Dressing/Cast: Your splint should stay in place at all times. Do NOT get it wet. You may loosen the TIGIST wrap if you feel it is too tight and then rewrap more loosely. Medications: - You should take Tylenol and Ibuprofen for baseline pain control. - You have Hydrocodone for breakthrough pain. - You may apply ice over the wrist. Follow-up: 7-10 days Referrals: Lionel Tanner MD [ [facility] STAFF PHYSICIAN, Orthopaedic Surgical] Equipment/Supplies: Splint Activity:: Elevate Remove Dressings/Wound Care:: Do Not Remove Shower/Bathe:: Cover Diet:: As Tolerated Discharge Orders Discharge Orders: Discharge Order (Routine); Ordered 06/29/25 Ordered By: Liseth Alvarez
--- NOTE | 2025-06-29 07:26 | W.PREOPHP ---
Assessment and Plan Assessment and plan (1) Ganglion cyst of dorsum of left wrist: Status: Acute Assessment and plan: Janny is a 74-year-old female who has a complex mass about the left wrist which is consistent with a large ganglion cyst with multiple loose bodies. Given its size and dysfunction and causes, I offered excision of the cyst. I reviewed the technical details. I discussed potential risk to include recurrence, continued pain, stiffness, wrist instability, need for repeat procedures, damage to nerves and vessels, muscles and tendons. Despite these risk, she elects to proceed. She has no other acute medical changes. She receives anesthesia with yearly colonoscopies, most recently in [place]. She has had no issues with anesthesia in the past. History of Present Illness History of Present Illness Chief Complaint: Left wrist cyst Narrative: Janny is a 74-year-old female who has a known complex cyst about the left wrist with multiple loose bodies. This has been present for quite some time and interferes with daily function and therefore she would like to have it removed. Please see the previous office note for complete detailed history. There is been no other acute changes to this left wrist. She also reports no other changes to her health of late. 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-on U/S stable on mammo [facility] 2012 Hypertension (Chronic) History of gastroesophageal reflux (GERD) (Chronic) Intermittent palpitations (Chronic) Annual physical exam (Acute) Anxiety as acute reaction to exceptional stress (Acute) Tubulovillous adenoma (Acute ~06/2021) Tinnitus (Acute) Bilateral sensorineural hearing loss (Acute) Elevated hemidiaphragm (Acute) Medical History Oral mucosal lesion Right knee pain Arthralgia Malaise Rash Abnormal breast finding left erythema, induration, painless Mouth lesion Kidney pain Anemia due to blood loss, acute Post-polypectomy bleeding Abnormal colonoscopy Acute GI bleeding Weight gain Colon cancer screening UTI (urinary tract infection) Dysuria Foot pain, right Foot pain, left Tubulovillous adenoma polyp of colon Migraine trigeminal neuralgia Surgical History History of colonoscopy (~06/2021) Family History Mother , Age 95 Essential hypertension Heart disease Father , Age 52 Hodgkin's disease Sister Essential hypertension Maternal Grandfather , 73 Heart disease Stroke Paternal Grandfather , 76 Personal history of malignant neoplasm Prostate Maternal Grandmother , 60 Heart disease Brother Essential hypertension Sister No problems noted. Sister No problems noted. Son Depression Daughter No problems noted. Social History Smoking/Tobacco Use Status: Never Second Hand Exposure: Yes Smoking risk assessment performed?: Yes Alcohol Intake: current Alcohol Intake frequency: a few times a week Alcohol type: wine Details: 1-2 drinks on typical day Drug use: Never Substance use type: does not use Adopted: No Caregiver/Support person: No Household members: spouse Housing: condominium Number of Children: 2 Communication Needs: None Education Level: vocational Do you need help understanding health information?: Never current occupation: Retired Pets and animals: Yes Pets and animals: cat(s) Sexually active: Yes Do you think of yourself as: straight/heterosexual Current gender identity: female What is your relationship status?: How often do you talk on the phone with friends or family?: three or more times per week How often do you get together with friends or relatives?: once per week How often do you attend mu-ism or restorationism services?: decline to answer Do you belong to any clubs or organized social groups?: no Panel score (0-1 are the most socially isolated patients): 2 What type of physical activity do you participate in: walking Duration: 60-90 minutes/day Frequency: 3-4 times per week Karley/Restorationist: Non islam Special karley needs: No Agree to transfusion: Yes Seatbelt use: always Drive intox or ride w/intox trailer truck driver: No Working smoke detector in home: Yes Carbon monox detector in home: Yes Firearms in home: Yes Firearms unloaded and locked: Yes Do you feel safe at home: Yes Do you feel safe in your relationship?: Yes Victim of physical abuse: No Victim of emotional abuse: No Victim of sexual abuse: No Meds Allergies and Home Medications Allergies Allergy/AdvReac Type Severity Reaction Status Date / Time lisinopril AdvReac Intermediate COUGH Verified 06/29/25 08:09 Home Medications ?Medication ?Instructions ?Recorded ?Confirmed ?Type cholecalciferol (vitamin D3) 50 2,000 unit PO DAILY 01/19/13 06/29/25 History mcg (2,000 unit) capsule (Vitamin D3) amlodipine 5 mg tablet 5 mg PO DAILY #90 tabs 09/07/24 06/29/25 Rx losartan 100 mg tablet 100 mg PO DAILY #90 tabs 09/07/24 06/29/25 Rx omeprazole 20 mg capsule,delayed See Rx Instructions .Route 09/07/24 06/29/25 Rx release .COMPLEX #90 caps acetaminophen 500 mg tablet 500 mg PO Q6H PRN pain #60 tabs 06/29/25 Rx hydrocodone 5 mg-acetaminophen 325 1 tab PO Q6H PRN severe pain #6 06/29/25 Rx mg tablet tabs ibuprofen 600 mg tablet 600 mg PO TID PRN pain #60 tabs 06/29/25 Rx Exam Const General: cooperative, healthy appearing, comfortable and no acute distress Resp Effort & Inspection: normal respiratory effort Auscultation: clear to auscultation bilaterally Cardio Rate: regular rate Rhythm: regular rhythm
[2025-06-29 08:04] VITALS: BP 151/33; PULSE 80; RESP 16; TEMP 36.3; O2SAT 97
[2025-06-29] MEDS: Celecoxib 200 MG CAP 400 MG PO (08:14)
[2025-06-29] MEDS: Acetaminophen 500 MG TAB 1000 MG PO (08:14)
--- NOTE | 2025-06-29 08:32 | W.ANESPRE ---
General Info Date of Service Date Performed: 06/29/25 Height: 5 ft 3 in Weight: 69.8 kg Body Mass Index (BMI): 27.2 Surgical Procedure: Operation Date: 06/29/25 09:55 Proposed Procedure Side Surgeon p Wrist Cyst Excision Left Lionel Tanner MD Actual Procedure Side Surgeon p Wrist Cyst Excision Left Lionel Tanner MD Pre-Op Diagnosis Post-Op Diagnosis Ganglion cyst of dorsum of left wrist Ganglion cyst of dorsum of left wrist Meds Allergies and Home Medications Allergies Allergy/AdvReac Type Severity Reaction Status Date / Time lisinopril AdvReac Intermediate COUGH Verified 06/29/25 08:09 Home Medication ?Medication ?Instructions ?Recorded cholecalciferol (vitamin D3) 50 2,000 unit PO DAILY 01/19/13 mcg (2,000 unit) capsule (Vitamin D3) amlodipine 5 mg tablet 5 mg PO DAILY #90 tabs 09/07/24 losartan 100 mg tablet 100 mg PO DAILY #90 tabs 09/07/24 omeprazole 20 mg capsule,delayed See Rx Instructions .Route 09/07/24 release .COMPLEX #90 caps acetaminophen 500 mg tablet 500 mg PO Q6H PRN pain #60 tabs 06/29/25 hydrocodone 5 mg-acetaminophen 325 1 tab PO Q6H PRN severe pain #6 06/29/25 mg tablet tabs ibuprofen 600 mg tablet 600 mg PO TID PRN pain #60 tabs 06/29/25 Current Visit Medications: Current Medications Generic Name Dose Route Start Last Admin Trade Name Freq PRN Reason Stop Dose Admin Acetaminophen 1,000 mg 06/29/25 06:00 06/29/25 08:14 Acetaminophen 500 Mg Tab PO 06/29/25 23:59 1,000 mg PREOP GIANA Administration Acetaminophen 650 mg 06/29/25 07:09 Acetaminophen 325 Mg Tab PO 07/29/25 07:08 Q4H PRN PRN Hydrocodone Bitart/Acetaminophen 0 tab 06/29/25 07:09 Hydrocodone 5/Acetaminophen 325 Tab PO 07/29/25 07:08 Q3H PRN PRN Pain Celecoxib 400 mg 06/29/25 06:00 06/29/25 08:14 Celecoxib 200 Mg Cap PO 06/29/25 23:59 400 mg PREOP GIANA Administration Ringer's Solution 1,000 mls @ 80 mls/hr 06/29/25 06:00 IV 06/29/25 23:59 INFUSION GIANA Cefazolin Sodium/Dextrose 2 gm in 50 mls @ 100 mls/hr 06/29/25 06:00 Ancef Duplex IVPB 06/29/25 23:59 PREOP GIANA IV Miscellaneous Supplies 1 each 06/29/25 06:00 Iv Access IV 06/29/25 23:59 DIRECTED GIANA Sodium Chloride 0 ml 06/29/25 06:00 Normal Saline Flush 10 Ml Syr IV 06/29/25 23:59 PRN PRN Sodium Chloride 0 ml 06/29/25 06:00 Normal Saline 10 Ml Vial IJ 06/29/25 23:59 DIRECTED PRN Sterile Water 0 ml 06/29/25 06:00 Water,Injection,Sterile 10 Ml Vial IJ 06/29/25 23:59 DIRECTED PRN PFSH Active Problems Active Problems: Problem Status Onset Code Medial epicondylitis, left elbow Acute M77.02 Ganglion cyst of dorsum of left wrist Acute M67.432 Hyperlipidemia Acute E78.5 Mass of joint of left elbow Acute M25.822 Mass of joint of left wrist Acute M25.832 Incomplete emptying of bladder Acute R33.9 Interstitial cystitis Acute N30.10 Pityriasis versicolor Chronic 01/29/13 B36.0 Peptic reflux disease Chronic K21.9 Osteopenia Chronic M85.80 Lipoma Chronic 01/29/13 D17.9 Hypertension Chronic I10 History of gastroesophageal reflux (GERD) Chronic Z87.19 Intermittent palpitations Chronic R00.2 Annual physical exam Acute Z00.00 Anxiety as acute reaction to exceptional stress Acute F41.1, F43.0 Tubulovillous adenoma Acute ~06/2021 D36.9 Tinnitus Acute H93.19 Bilateral sensorineural hearing loss Acute H90.3 Elevated hemidiaphragm Acute J98.6 Medical History Medical History Oral mucosal lesion Right knee pain Arthralgia Malaise Rash Abnormal breast finding left erythema, induration, painless Mouth lesion Kidney pain Anemia due to blood loss, acute Post-polypectomy bleeding Abnormal colonoscopy Acute GI bleeding Weight gain Colon cancer screening UTI (urinary tract infection) Dysuria Foot pain, right Foot pain, left Tubulovillous adenoma polyp of colon Migraine trigeminal neuralgia Surgical History Surgical History History of colonoscopy (~06/2021) Tobacco Smoking/Tobacco Use Status: Never Passive smoking exposure: Yes Second hand exposure: Yes Alcohol Alcohol Intake: current Alcohol intake frequency: a few times a week Alcohol type: wine Details: 1-2 drinks on typical day Substance Use Substance use: Never Substance use type: does not use Vital Signs and Lab Results Vital Signs Most Recent Vital Signs in EMR: Most Recent Vital Signs Temp Pulse Resp BP Pulse Ox 36.3 C L 80 16 151/33 H 97 06/29/25 08:04 06/29/25 08:04 06/29/25 08:04 06/29/25 08:04 06/29/25 08:04 Imaging and Studies Imaging and Studies Study information below may be from another EMR and interpreted by another provider. Please see original notes in EMR for more complete details. Stress Test Summary: 2012: negative for ischemia. Anesthesia Assessment and Plan Anesthesia History Personal History: No History of Anesthesia Complications Family History: No Family History of Anesthesia Complications Exercise Tolerance Exercise Tolerance: Metabolic Equivalents>4 Pertinent Negatives Pertinent Negatives: No Symptoms of GERD Cardiac & Pulmonary Exam Cardiac Exam: Normal S1/S2 Heart Sounds Pulmonary Exam: Clear Bilateral Breath Sounds Implantable Cardiac Device Does patient have a Pacemaker or an ICD?: No Airway Exam Known Difficult Airway: No Mallampati Class: 2 Mouth Opening: Normal (> 3cm) Thyromental Distance: Greater than 3 cm Neck Range of Motion: Full ROM Neck Circumference: Normal Teeth Condition: Normal Dentition ASA Classification ASA Score: ASA 2 Emergency Case?: No NPO Status NPO Status: NPO Clears >2 hours, Solids >8 hours Anesthesia Plan Resuscitation Status: Full Code Anesthesia Technique: General Anesthesia Airway Planned: Natural Airway Monitors Used: Standard Monitors
[2025-06-29 08:38] VITALS: BMI 27.2
[2025-06-29] MEDS: Lactated Ringers 1,000 ML 80 ML IV (08:40)
[2025-06-29] MEDS: ceFAZolin 2 GM/50 ML BAG IVPB (09:10)
[2025-06-29] MEDS: Lidocaine 1% Multi-Dose W/EPI 1/100,000 50 ML VIAL (09:21)
--- NOTE | 2025-06-29 09:30 | SKI_PTH ---
PATIENT: Janny Cheung V LOC: [facility] U#:[id number] AGE/SX: 74/F ROOM: RE06/29/[address]: Lionel Tanner MD : 1950 BED: DIS: 06/29/2025 SPEC #: [id number] RECD: 06/29/25 12:52 STATUS: TERE REQ #: [id number] ROBERT: 06/29/25 09:[address]: Lionel Tanner DEPT: Surgical Specimen RECD BY: Erica Hawthorne ENTERED: 06/29/25 12:53 SP TYPE: SKI OTHR DR: Carlos Fisher DNP Tissues: 1 - SKIN BIOPSY(SHAVE/PUNCH) Procedures: GROSS AND MICRO LEVEL 4 Comments: [id number]
[2025-06-29 09:55] VITALS: BP 100/67; PULSE 64; RESP 16; TEMP 36.5; O2SAT 95
[2025-06-29 10:27] VITALS: BP 143/87; PULSE 66; RESP 16; TEMP 36; O2SAT 100
--- NOTE | 2025-06-29 10:33 | W.PM.OP ---
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 This cyst has continued to be bothersome despite some conservative options. Its size and interference with activities continues to cause problems. Therefore, I offered excision of the mass. I discussed the risks to include bleeding, infection, pain, stiffness, damage to nerve and vessels, recurrence. Despite these risks, she elects to proceed. Findings: Procedure Description: Janny was greeted in the preoperative holding area. Identity was confirmed and the correct site was identified and marked. Consent was reviewed the patient and signed. History and physical was updated. The patient to take not to the operating room placed in supine position. All bony prominences were well-padded. The arms and prepped with ChloraPrep and draped in a standard fashion. The surgical site was marked on the skin as a longitudinal incision parallel to the volar border of the distal ulna and extending parallel to this adjacent to the course of the extensor carpi ulnaris tendon. Then, this was injected with 1% lidocaine with epinephrine buffered with sodium bicarbonate. The skin was incised sharply. Deeper dissection was carried out with tenotomy scissors and careful attention to vascular branches in this area. The mass was identified. There is more fat and inflammatory tissue around this than I was expecting. This made the dissection slightly more challenging. There was a capsular layer which I incised which showed the cyst capsule more clearly. At this point I deflated the cyst where there is only minimal amount of fluid seen. However, there is redundant synovial tissue in this area. I used a rongeur as well as tenotomy scissors to remove the cyst capsule. A portion of the synovium and the cyst was sent to pathology given the erosive and destructive changes of the arthritis and the risk for potential inflammatory conditions leading to the setting. 2 large bony loose bodies removed. Each loose body measured approximately 1 cm in width and between 10 and 15 mm in length. I had visualization down to the joint and across the volar aspect of the wrist joint. Capsule was maintained and the cyst capsule was removed. Utilized a rongeur to remove is much as possible. This was then thoroughly irrigated. There is no major arterial bleeding in any other persistent ooze was cauterized with the bipolar electrocautery. The wound was dry. The deep layer was reapproximated with a 3-0 Vicryl. The skin was closed with a running 4-0 Monocryl followed by skin glue, gauze, and Germán wrap. The wrist was placed into a short arm splint. At the end the case all counts were correct. The patient was awakened from anesthesia and taken to the PACU in stable condition. There were no noted complications. Date of Procedure: 06/29/25
--- NOTE | 2025-06-29 19:46 | W.ANESPOSTOP ---
Postoperative Evaluation Date, Time and Location Date Performed: 06/29/25 Time Performed: 10:37 Patient Location: Day Surgery Unit Vital Signs Most Recent Imported Vital Signs: Most Recent Vital Signs Temp Pulse Resp BP Pulse Ox 36 C L 66 16 143/87 H 100 06/29/25 10:27 06/29/25 10:27 06/29/25 10:27 06/29/25 10:27 06/29/25 10:27 Pain Score Most Recent Pain Score: Most Recent Pain Score Pain Level 0 06/29/25 10:27 Assessment Mental Status: Awake (Alert & Oriented to Patient Baseline) Airway and Respiratory Function: Patent airway with normal (patient baseline) respiratory exam Cardiovascular Function: Hemodynamically Stable Hydration Status: Adequately Hydrated Nausea & Vomiting: No Nausea or Vomiting Pain: Pt. Denies Any Pain Peripheral Nerve Block: Patient did not receive a nerve block
== END 2025-06-29 10:33 | disposition home or self-care (01) ==
LOC: SUR 07:54
PROVIDERS: PCP Nurse Practitioner Family; Visit Provider Student in an Organized Health Care Education/Training Program
PROC: (CPT 25111; principal; 2025-06-29 09:45)
DX: M67.432 Ganglion, left wrist (principal); I10 Essential (primary) hypertension; E78.5 Hyperlipidemia, unspecified; M24.032 Loose body in left wrist
CPT/HCPCS: 25111; 88305; 88304; J0690; J1100; J1885; J2004; J2405; J2704

== ENCOUNTER → 2025-07-09 08:34 | Outpatient (BNVA) | payer MEDICARE, SELFPAY | PROVIDERS: PCP Nurse Practitioner Family; Referring Provider Nurse Practitioner Family; Visit Provider Physician Assistant | DX: Z47.89 Encounter for other orthopedic aftercare (principal); M67.432 Ganglion, left wrist | CPT/HCPCS: 99024 ==

== ENCOUNTER 2025-07-15 13:44 | Outpatient (REF) | payer MEDICARE, SELFPAY ==
[2025-07-15 17:57] LABS: Glucose Negative (Negative)
[2025-07-15 18:21] LABS: C & S Indicated? No; RBC Negative HPF (0-2); WBC 0-2 HPF (0-5)
== END 2025-07-15 13:45 | disposition home or self-care (01) ==
LOC: LBN 13:44
PROVIDERS: PCP Nurse Practitioner Family; Visit Provider Nurse Practitioner Family
DX: R39.9 Unspecified symptoms and signs involving the genitourinary system (principal)
CPT/HCPCS: 81003; 81015